=== PATIENT | male | born 1945 | race Caucasian/White ===

== ENCOUNTER 2025-01-01 09:29 | Emergency (ER) | payer MEDICARE, BC, SELFPAY ==
[2025-01-01 09:30] VITALS: BMI 28.8
[2025-01-01 09:40] VITALS: BP 129/75; PULSE 75; RESP 18; TEMP 37.1; O2SAT 94
--- NOTE | 2025-01-01 09:43 | XR_ITS ---
Examination: CT left hip, without contrast. CT pelvis without intravenous contrast 2-D sagittal reconstructions. 2-D coronal reconstructions. 3-D reconstructions. Date and time of exam:January 01, 2025 1009 hours INDICATIONS: Injury to the left hip 10 days ago with persistent left hip pain CTDI: vol (mGy):8.99 DLP: (mGycm):303 Technique: Multiple 1.25 mm axial sections of the pelvis left hip have been obtained. 2-D sagittal and coronal reconstructions have been obtained. 3-D reconstructions have been obtained. Low dose protocols were performed. One or more of the following dose reduction techniques were used; automated exposure control, adjustment of the mA and/or KV according to patient size, use of iterative reconstruction technique. Findings: Prominent osteopenia Iliac bones acetabular regions intact Anterior rami intact No right or left acute hip fracture Old healed left hip fracture Advanced degenerative disc disease L5-S1 with grade 1 spondylolisthesis IMPRESSION: No acute hip or pelvic fracture If hip pain persists, recommend follow-up AP pelvis in 1-2 days
--- NOTE | 2025-01-01 09:43 | EKG_ITS ---
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
--- NOTE | 2025-01-01 09:43 | XR_ITS ---
Examination: CT brain head without contrast. 2-D sagittal coronal reconstructions Date and time of exam:January 01, 2025 1005 hours INDICATIONS: Patient fell 10 days ago with injury to the head, head pain CTDI: vol (mGy):55.7 DLP: (mGycm):1156 Technique: Multiple CT axial sections of the brain have been obtained, 5 mm slice thickness. Contrast has not been administered. 2-D sagittal, coronal reconstructions have been obtained Low dose protocols were performed. One or more of the following dose reduction techniques were used; automated exposure control, adjustment of the mA and/or KV according to patient size, use of iterative reconstruction technique. Findings: No significant ventricular enlargement. Intra-axial or extra-axial hemorrhage density is not seen. No mass effect or midline shift Basal cisterns are not remarkable. Fourth ventricle is midline. Cranial vault intact. Impression: Negative for acute hemorrhage, mass effect or midline shift
--- NOTE | 2025-01-01 09:43 | XR_ITS ---
Examination: CT cervical spine without contrast 2-D sagittal reconstructions 2-D coronal reconstructions 3-D reconstructions. Exam date and time:January 01, 2025 1005 hours INDICATIONS: Patient fell 10 days ago with injury to the neck, neck pain CTDI:vol (mGy) 8.96 DLP: (mGycm) 182 Technique: Multiple 2 mm axial sections of the cervical spine have been obtained. The coronal and sagittal reconstructions have been obtained. 3-D reconstructions have been obtained. Low dose protocols were performed. One or more of the following dose reduction techniques were used; automated exposure control, adjustment of the mA and/or KV according to patient size, use of iterative reconstruction technique. Findings: Axial sections demonstrate intact base of the skull. C1 exhibit satisfactory relationship to the odontoid. No acute cervical vertebral body fracture seen. Alignment posterior spinous processes satisfactory. Impression: No acute cervical fracture.
--- NOTE | 2025-01-01 09:44 | EDRME_ITS ---
Rapid Medical Screening Exam RME Arrival date/time: 01/01/25 09:29 79-year-old male with Parkinson's disease presents emergency department today with who reports patient had a fall in the driveway on Wednesday reports left- sided hip pain and increased confusion Chief Complaint: Hip Injury/Pain Time Seen by Provider: 01/01/25 09:39 Vital signs: Vital Signs Temperature 98.7 F 01/01/25 09:40 Pulse Rate 75 01/01/25 09:40 Respiratory Rate 18 01/01/25 09:40 Blood Pressure 129/75 01/01/25 09:40 Pulse Oximetry (%) 94 L 01/01/25 09:40 Oxygen Delivery Method Room Air 01/01/25 09:40
[2025-01-01 10:54] LABS: Basophils % (Auto) 1 % (0-2.5); Eosinophils # (Auto) 0.1 Thou/mm3 (0.0-0.5); Eosinophils % (Auto) 1 % (0-10); Hemoglobin 13.9 g/dL (13.5-16.0); Immature Granulocytes % (Auto) 1 % (0-0); Immature Granulocytes Auto 0.03 Thou/mm3 (0.00-0.00); Lymphocytes % (Auto) 18 % (10-50); Mean Corpuscular HGB Conc 34.8 g/dl (31.0-37.0); Mean Corpuscular Volume 101 fL (80-100); Monocytes # (Auto) 0.7 Thou/mm3 (0.0-0.8); Monocytes % (Auto) 13 % (0-12); Neutrophils # (Auto) 3.8 Thou/mm3 (1.8-7.7); Neutrophils % (Auto) 67 % (37-80); Nucleated Red Blood Cell % 0 /100 WBC (0); Platelet Count 142 Thou/mm3 (140-440); RDW Standard Deviation 47.5 fL (35.1-43.9); Red Blood Count 3.97 Miln/mm3 (4.50-5.90); White Blood Count 5.7 Thou/mm3 (3.8-10.6)
[2025-01-01 11:21] LABS: Alanine Aminotransferase < 7 U/L (10-49); Albumin, Serum 4.6 gm/dL (3.4-4.8); Alkaline Phosphatase 98 U/L (46-116); Anion Gap 8 (7-16); Aspartate Amino Transferase 18 U/L (0-34); BUN/Creatinine Ratio 23 Ratio (12-20); Blood Urea Nitrogen 28 mg/dL (9-23); Calcium 9.9 mg/dL (8.3-10.6); Calcium (Corrected) 9.9 mg/dL (8.5-10.1); Carbon Dioxide 27.2 mMol/L (20.0-31.0); Chloride 104 mMol/L (98-107); Creatinine (Component) 1.2 mg/dL (0.6-1.3); Estimated Creatinine Clearance 52.4 mL/min (>60); Globulin 2.3 gm/dL (2.3-3.5); Glucose 101 mg/dL (74-106); Osmolality,Calculated 283 (275-295); Sodium 139 mMol/L (136-145); Total Protein 6.9 gm/dL (5.7-8.2); Troponin I < 0.020 ng/mL (0.0-0.045); eGFR > 60 See Note
--- NOTE | 2025-01-01 12:08 | PD.EDHIP ---
Lower Extremity Injury RME/HPI General Chief Complaint: Hip Injury/Pain Stated Complaint: LEFT HIP PAIN S/P FALL 10 DAYS AGO Time Seen by Provider: 01/01/25 09:39 Arrival date/time: 01/01/25 09:29 RME / HPI RME / HPI Narrative: 01/01/25 09:29 79-year-old male with Parkinson's disease presents emergency department today with who reports patient had a fall in the driveway on Wednesday reports left-sided hip pain and increased confusion DR. KILLIAN MAIN ED EVALUATION: 79 year old male presents to the Emergency Department with complaint of left hip pain onset 10 days ago. Patient fell 10 days ago and since has pain. Per , he was walking a mile without walker and after fall has been using a walker. Related Data Home Medications ?Medication ?Instructions ?Recorded ?Confirmed allopurinol 300 mg tablet 300 mg PO QDAY 05/19/18 05/12/24 amlodipine 10 mg tablet 10 mg PO QDAY 05/19/18 05/15/24 tamsulosin 0.4 mg capsule 0.4 mg PO QHSPRN 05/19/18 05/12/24 aspirin 25 mg-dipyridamole 200 mg 1 cap PO BID 05/12/24 05/12/24 capsule,ext.release 12 hr multiphase famotidine 20 mg tablet 20 mg PO QDAY 05/12/24 05/12/24 Allergies Allergy/AdvReac Type Severity Reaction Status Date / Time No Known Allergies Allergy Verified 01/01/25 09:32 Review of Systems Review of Systems Systems Reviewed: All systems reviewed, normal except as documented Narrative Review of Systems: GEN: No fever, no chills, no weight loss EYES: No discharge, no visual changes, no pain HEENT: No ear pain, no congestion, no sore throat PULM: No shortness of breath, no cough, no congestion CV: No chest pain, no dyspnea on exertion, no palpitations GI: No nausea, no vomiting, no diarrhea, no pain, no constipation : No frequency, no urgency and no dysuria MUSC/SKEL: + left hip pain, no back pain SKIN: No rash PSYCH: No hallucinations, no depression HEME/LYMPH: No easy bleeding or bruising tendencies NEURO: No weakness, no headache Past Medical History Past Medical History NEUROLOGIC: Positive Neurological Disorders and Transient Ischemic Attacks (TIA) CARDIAC: Positive Cardiac Disorders and Hypertension GASTROINTESTINAL: Positive Gastrointestinal Disorders (CONSTIPATION) and Obesity GENITOURINARY: Positive Genitourinary Disorders and Benign Prostatic Hyperplasia MUSCULOSKELETAL: Positive Musculoskeletal Disorders and Gout Family History FAMILY HISTORY: Positive Family Cardiac Disorders Social History SMOKING STATUS: Never smoker SUBSTANCE USE: does not use ALCOHOL: Never Travel History EBOLA RISK: No ED Exam Narrative Physical exam: GENERAL APPEARANCE: Well hydrated, well nourished, in no acute distress. VITALS: All vitals were reviewed and the pulse ox is 94% on room air which is normal according to my interpretation. HEENT: Normocephalic, atramatic, EOMI, EACs are patent. There is no bulge or retraction. Throat without erythema or exudate. Moist oromucosa. No jaundice NECK: Supple, no JVD or bruits. CARDIOVASCULAR: Heart regular without S3-S4 or murmur. No rubs or gallops. LUNGS/CHEST: Clear to auscultation bilaterally. No rales, rhonchi, or wheezing. Normal inspection. ABDOMEN: Soft, nontender, with normal bowel sounds. No pulsatile masses. No rebound, rigidity, or guarding. No incarcerated hernia. Normal inspection and palpation. EXTREMITIES: No edema, clubbing, or cyanosis. Intact CSM. FROM of left hip including FROM of left distal foot. SKIN: Warm and dry without rashes. Noted an old left scar on the left hip area. MUSCULOSKELETAL: No gross deformity, full ROM all extremities. Normal inspection. NEURO: Alert and oriented x3. Cranial nerves II through XII grossly intact. There are no other motor or sensory deficits noted. PSYCHIATRIC: Normal mood and affect. No psychosis. Course Quality Measures none Orders Category Date Time Status EKG (ED ONLY) *Do not use* NOW Care 01/01/25 09:[address] cervical spine wo con Stat Exams 01/01/25 09:[address] head/brain wo con Stat Exams 01/01/25 09:[address] hip LT wo con Stat Exams 01/01/25 09:43 Completed EKG (ED Only) Stat Exams 01/01/25 09:43 Draft XR femur LT 2V Stat Exams 01/01/25 12:18 Taken CBC Stat Lab 01/01/25 10:26 Completed Comprehensive Metabolic Panel Stat Lab 01/01/25 10:26 Completed Troponin I Stat Lab 01/01/25 10:26 Completed UA, C/S IF [Urinalysis, C/S if Indicated] Stat Lab 01/01/25 12:42 Completed Vital Signs Vital signs: Vital Signs Temperature 98.7 F 01/01/25 09:40 Pulse Rate 75 01/01/25 09:40 Respiratory Rate 18 01/01/25 09:40 Blood Pressure 129/75 01/01/25 09:40 Pulse Oximetry (%) 94 L 01/01/25 09:40 Oxygen Delivery Method Room Air 01/01/25 09:40 Extremity Injury, Lower MDM Narrative MDM Narrative:: I, Camille Herrera am scribing for and in the presence of Dr. Killian. CBC is negative. CMP negative. Troponin negative. Twelve-lead EKG that was done at 9:50 AM and interpreted by me: Normal sinus rhythm. Heart rate of 70. No ST elevation or depression. No PVC. No STEMI. Regular rate and rhythm. CT head was reviewed by me as follow: No bleed. No mass. No shifting. No swelling. Normal ventricle. Normal skull. CT cervical spine was reviewed by me as follow: No fracture. No dislocation. Normal alignment. No adjacent soft tissue swelling. Positive for arthritis. CT of the left hip was reviewed by me as follow: No fracture. Status post ORIF with metals. No dislocation. Acetabular liner and the rest of the pelvic bones are negative. In fact I spoke to and discussed with Dr. Donald Rosales radiologist. He confirmed with me that it is negative. Both right and left hip. X-ray of the left hip was done and interpreted by me as follow. No fracture. Status post ORIF with intact hardware. No dislocation. Visible part of the left acetabula and left knee is unremarkable. Patient data External records reviewed:: [facility] previous records (Reviewed colonoscopy note by Dr. Renee dated 05/19/24.) Clinical information provided by:: patient and spouse Social determinants that could affect healthcare access:: none Patient has the following chronic illnesses:: Hypertension and GERD How is presenting disease/condition affected by chronic disease/condition?: uneffected by Evaluation data The following diagnostics were reviewed and interpreted by me:: lab results, radiology exam(s) and EKG tracing(s) Lab and/or radiology exams considered but not ordered:: none Interpretation Summary: See above under MDM narrative. RADIOLOGY Procedure(s): CT hip LT wo con Accession Number(s): [id number] cc: Baylee (NASH),Schuyler CAO; Donald Tran MD~ Examination: CT left hip, without contrast. CT pelvis without intravenous contrast 2-D sagittal reconstructions. 2-D coronal reconstructions. 3-D reconstructions. Date and time of exam:January 01, 2025 1009 hours INDICATIONS: Injury to the left hip 10 days ago with persistent left hip pain CTDI: vol (mGy):8.99 DLP: (mGycm):303 Technique: Multiple 1.25 mm axial sections of the pelvis left hip have been obtained. 2-D sagittal and coronal reconstructions have been obtained. 3-D reconstructions have been obtained. Low dose protocols were performed. One or more of the following dose reduction techniques were used; automated exposure control, adjustment of the mA and/or KV according to patient size, use of iterative reconstruction technique. Findings: Prominent osteopenia Iliac bones acetabular regions intact Anterior rami intact No right or left acute hip fracture Old healed left hip fracture Advanced degenerative disc disease L5-S1 with grade 1 spondylolisthesis IMPRESSION: No acute hip or pelvic fracture If hip pain persists, recommend follow-up AP pelvis in 1-2 days Dictated By: Donald Tran MD Procedure(s): CT head/brain wo con Accession Number(s): [id number] cc: Baylee KEENAN),Schuyler CAO; Donald Tran MD~ Examination: CT brain head without contrast. 2-D sagittal coronal reconstructions Date and time of exam:January 01, 2025 1005 hours INDICATIONS: Patient fell 10 days ago with injury to the head, head pain CTDI: vol (mGy):55.7 DLP: (mGycm):1156 Technique: Multiple CT axial sections of the brain have been obtained, 5 mm slice thickness. Contrast has not been administered. 2-D sagittal, coronal reconstructions have been obtained Low dose protocols were performed. One or more of the following dose reduction techniques were used; automated exposure control, adjustment of the mA and/or KV according to patient size, use of iterative reconstruction technique. Findings: No significant ventricular enlargement. Intra-axial or extra-axial hemorrhage density is not seen. No mass effect or midline shift Basal cisterns are not remarkable. Fourth ventricle is midline. Cranial vault intact. Impression: Negative for acute hemorrhage, mass effect or midline shift Dictated By: Donald Tran MD Procedure(s): CT cervical spine wo con Accession Number(s): [id number] cc: Baylee KEENAN),Schuyler CAO; Donald Tran MD~ Examination: CT cervical spine without contrast 2-D sagittal reconstructions 2-D coronal reconstructions 3-D reconstructions. Exam date and time:January 01, 2025 1005 hours INDICATIONS: Patient fell 10 days ago with injury to the neck, neck pain CTDI:vol (mGy) 8.96 DLP: (mGycm) 182 Technique: Multiple 2 mm axial sections of the cervical spine have been obtained. The coronal and sagittal reconstructions have been obtained. 3-D reconstructions have been obtained. Low dose protocols were performed. One or more of the following dose reduction techniques were used; automated exposure control, adjustment of the mA and/or KV according to patient size, use of iterative reconstruction technique. Findings: Axial sections demonstrate intact base of the skull. C1 exhibit satisfactory relationship to the odontoid. No acute cervical vertebral body fracture seen. Alignment posterior spinous processes satisfactory. Impression: No acute cervical fracture. Dictated By: Donald rTan MD Medications / Prescriptions Medications or Prescriptions considered but not ordered:: none Medication administrations:: see above if any Consultations Consultation(s) initiated? (list below): No Diagnosis Most likely diagnosis given after review of the tests above:: Hip sprain. Hip strain. Admission Indicated Admission indicated?: not indicated Admission Request Was there a request for admission?: No Disposition Plan Disposition Plan: Discharge Discharge Attestation Discharge Attestation: The patient and all family members were given an opportunity to ask questions and understood the discharge instructions. Discharge instructions specifically effects, indications for sooner follow up or return to the emergency department, and the expected course of current diagnosis. Patient condition: Stable Discharge Plan Plan Patient Disposition: HOME (Self Care) Disposition Comment: Stable for DC home Prescriptions/Referrals Prescriptions/Med Rec: No Action tamsulosin 0.4 mg Capsule,Extended Release 24hr 0.4 mg PO QHSPRN amlodipine 10 mg Tablet 10 mg PO QDAY allopurinol 300 mg Tablet 300 mg PO QDAY aspirin-dipyridamole 25-200 mg capsule, ER multiphase 12 hr 1 cap PO BID Patient Comments: TAKE 1 CAPSULE BY MOUTH TWICE A DAY famotidine 20 mg tablet 20 mg PO QDAY Patient Comments: TAKE 1 TABLET BY MOUTH EVERYDAY AT BEDTIME Referrals: Cristino Henning MD [Primary Care Provider] - In 1 week Problem List Clinical Impression: Sprain of left hip Patient/Caregiver Discharge Instructions Education Materials: ED Hip Strain Additional Instructions: X-rays and CT is showing no evidence of fracture or dislocation at this time. Rest your painful joint. Follow-up with your doctor in 3 days. Return to emergency department if condition worsens or if new symptoms develop. Consider repeat x-ray if that happens. In the meantime you can take some Motrin for pain Print Language: Chadian Stand Alone Forms: [employer] Award Info., Patient Portal Info Letter
--- NOTE | 2025-01-01 12:18 | XR_ITS ---
Examination: Left femur 2 views Technique one AP lateral left femur 2 views Exam date and time: January 01, 2025 1221 hours INDICATIONS: Patient fell 10 days ago with injury to the leg, left femur pain FINDINGS: Old healed fracture left hip with satisfactory position orthopedic hardware Moderate left hip osteoarthritis No acute femur fracture IMPRESSION: No acute femur fracture
[2025-01-01 12:49] LABS: Collection Type, Urine Clean Catch; Squamous Epithelial Cell,Urine 0 /hpf (0-5)
[2025-01-01 13:05] LABS: Bilirubin,Urine Negative (Negative); Blood,Urine Negative (Negative); Clarity,Urine Clear (Clear/Hazy); Color,Urine Yellow (Lt Yel-Yel); Culture Indicated,Urine Not Indicated; Glucose, Urine Negative (Negative); Ketones,Urine Negative (Negative); Leukocyte Esterase,Urine Negative (Negative); Nitrite,Urine Negative (Negative); Protein,Urine Trace (Neg - Trace); RBC,Urine 1 /hpf (0-3); Specific Gravity,Urine 1.028 (1.001-1.035); Urobilinogen,Urine Negative mg/dL (0.0-1.0); WBC,Urine < 1 /hpf (0-5)
[2025-01-01 13:20] VITALS: BP 174/81; PULSE 70; RESP 21; O2SAT 92
[2025-01-01] MEDS: IBUPROFEN TAB 600 MG TABLET PO (13:58)
== END 2025-01-01 14:02 | disposition home or self-care (01) ==
PROVIDERS: Nurse Practitioner Primary Care; Emergency Provider Emergency Medicine; PCP Family Medicine
DX: S73.102A Unspecified sprain of left hip, initial encounter (principal); R41.0 Disorientation, unspecified; M54.2 Cervicalgia; I10 Essential (primary) hypertension; G20.A1 Parkinson's disease without dyskinesia, without mention of fluctuations; Z86.73 Personal history of transient ischemic attack (TIA), and cerebral infarction without residual deficits; W19.XXXA Unspecified fall, initial encounter; Y92.89 Other specified places as the place of occurrence of the external cause
CPT/HCPCS: 36415; 70450; 72125; 73552; 73700; 80053; 81001; 84484; 85025; 93005; 99284; A9270

== ENCOUNTER 2025-01-02 08:18 | Inpatient (IN) | payer MEDICARE, BC, SELFPAY ==
[2025-01-02] VITALS (12 sets, daily range): BP systolic 131–171; BP diastolic 73–133; PULSE 75–90; RESP 16–22; TEMP 36.7–38.7; O2SAT 91–97; BMI 28.8; BMI 28.5
--- NOTE | 2025-01-02 08:49 | PD.EDFALL ---
ED Fall Injury RME/HPI General Chief Complaint: Fall Stated Complaint: fall Time Seen by Provider: 01/02/25 08:31 Arrival date/time: 01/02/25 08:18 RME / HPI RME / HPI Narrative: DR. HAIRSTON MAIN ED EVALUATION: 79 year old male presents to the Emergency Department [facility] with complaint of falling backwards and landed on buttocks. No loss of consciousness. Patient takes a daily ASA. PMHx: Hypertension, GERD, dementia and Parkinson's disease Social Hx: No tobacco, alcohol, or substance use. Related Data Home Medications ?Medication ?Instructions ?Recorded ?Confirmed allopurinol 300 mg tablet 300 mg PO QDAY 05/19/18 05/12/24 amlodipine 10 mg tablet 10 mg PO QDAY 05/19/18 05/15/24 tamsulosin 0.4 mg capsule 0.4 mg PO QHSPRN 05/19/18 05/12/24 aspirin 25 mg-dipyridamole 200 mg 1 cap PO BID 05/12/24 05/12/24 capsule,ext.release 12 hr multiphase famotidine 20 mg tablet 20 mg PO QDAY 05/12/24 05/12/24 Allergies Allergy/AdvReac Type Severity Reaction Status Date / Time No Known Allergies Allergy Verified 01/01/25 09:32 Review of Systems Review of Systems Systems Reviewed: All systems reviewed, normal except as documented Narrative Review of Systems: GEN: No fever, no chills, no weight loss EYES: No discharge, no visual changes, no pain HEENT: No ear pain, no congestion, no sore throat PULM: No shortness of breath, no cough, no congestion CV: No chest pain, no dyspnea on exertion, no palpitations GI: No nausea, no vomiting, no diarrhea, no pain, no constipation : No frequency, no urgency and no dysuria MUSC/SKEL: + buttocks pain (fall see HPI) SKIN: No rash PSYCH: No hallucinations, no depression HEME/LYMPH: No easy bleeding or bruising tendencies NEURO: No weakness, no headache Past Medical History Past Medical History NEUROLOGIC: Positive Neurological Disorders, Transient Ischemic Attacks (TIA), Dementia and Parkinson's Disease; Negative Seizures CARDIAC: Positive Cardiac Disorders and Hypertension; Negative Congestive Heart Failure RESPIRATORY: Negative Chronic Obstructive Pulmonary Disease (COPD) GASTROINTESTINAL: Positive Gastrointestinal Disorders and Obesity GENITOURINARY: Positive Genitourinary Disorders and Benign Prostatic Hyperplasia; Negative Renal Disease MUSCULOSKELETAL: Positive Musculoskeletal Disorders and Gout ENT: Positive Cataracts ENDOCRINE: Negative Endocrine Disorders, Diabetes Mellitus Type 1 or Diabetes Mellitus Type 2 HEMATOLOGIC: Negative Blood Disorders OTHER HISTORY: Negative Autoimmune Disease, Falls, Blood Transfusions or Anesthesia Reactions Family History FAMILY HISTORY: Positive Family Cardiac Disorders Social History SMOKING STATUS: Never smoker SUBSTANCE USE: does not use ALCOHOL: Never ED Exam Narrative Physical exam: GENERAL APPEARANCE: alert and oriented x 4, well-developed, well-nourished VITALS: All vitals were reviewed and the pulse ox is 91% on room air, which is normal according to my interpretation. HEENT: Normocephalic, atraumatic; pupils equal, round, reactive to light; EOMI; mucous membranes pink, moist; oropharynx clear NECK: Supple LUNGS: CTABL; no wheezes, no rales, no rhonchi HEART: Regular rate, regular rhythm; normal S1, S2; no murmurs ABDOMEN: non distended; normal BS; soft, no tenderness, no guarding, no rebound; no masses, no organomegaly, no hernia BACK: no CVA tenderness EXTREMITIES: atraumatic; no edema NEUROLOGIC: awake; alert and oriented x4; cranial nerves II-XII grossly intact; no focal sensory or motor deficits PSYCHIATRIC: appropriate mood and affect SKIN: warm, dry, normal color; no rashes Course Quality Measures none Orders Category Date Time Status Maintenance Man NOW Care 01/02/25 10:59 Active Consult Talent Acquisition Lead NOW Care 01/02/25 10:44 Completed EKG (ED ONLY) *Do not use* NOW Care 01/02/25 10:59 Completed Referral Physical Therapy Stat Cons 01/02/25 10:[address] head/brain wo con Stat Exams 01/02/25 13:21 Completed EKG (ED Only) Stat Exams 01/02/25 10:59 Draft XR chest 1V portable Stat Exams 01/02/25 10:59 Completed XR hip LT w pelvis 2-3V Stat Exams 01/02/25 10:58 Completed B-Type Natriuretic Peptide Stat Lab 01/02/25 11:22 Completed CBC Stat Lab 01/02/25 11:22 Completed Comprehensive Metabolic Panel Stat Lab 01/02/25 11:22 Completed Lactate (Lactic Acid) Stat Lab 01/02/25 11:22 Completed Magnesium Stat Lab 01/02/25 11:22 Completed Partial Thromboplastin Time Stat Lab 01/02/25 11:22 Completed Prothrombin Time with INR Stat Lab 01/02/25 11:22 Completed Troponin I Stat Lab 01/02/25 11:22 Completed UA, C/S IF [Urinalysis, C/S if Indicated] Stat Lab 01/02/25 13:32 Completed HYDROcodone*/APAP 5/325 [[place] 5/325] Med 01/02/25 08:48 Discontinued 1 tab PO X1 ONE Vital Signs Vital signs: Vital Signs Temperature 98.5 F 01/02/25 08:39 Pulse Rate 75 01/02/25 08:39 Respiratory Rate 17 01/02/25 08:39 Blood Pressure 155/86 H 01/02/25 08:39 Pulse Oximetry (%) 93 L 01/02/25 08:39 Oxygen Delivery Method Room Air 01/02/25 08:39 Fall MDM Narrative MDM Narrative:: ICamille am scribing for and in the presence of Dr. Hairston. Patient data External records reviewed:: [facility] previous records (Reviewed last ED visit dated 01/01/25, discharged with the following: Sprain of left hip) and EMS form Clinical information provided by:: patient and EMS Social determinants that could affect healthcare access:: none Patient has the following chronic illnesses:: Hypertension, GERD, dementia and Parkinson's disease How is presenting disease/condition affected by chronic disease/condition?: exacerbated by Evaluation data The following diagnostics were reviewed and interpreted by me:: lab results, radiology exam(s) and EKG tracing(s) (EKG#1: EKG at 0950 hours. Interpreted by me: sinus rhythm, rate 70, no acute ischemic changes) Lab and/or radiology exams considered but not ordered:: none Interpretation Summary: Procedure(s): CT head/brain wo con Accession Number(s): [id number] cc: Donald Tran MD; Amelie Hairston MD; Cristino Henning MD~ Examination: CT brain head without contrast. 2-D sagittal coronal reconstructions Date and time of exam:January 02, 2025 1353 hours Comparison January 01, 2025 INDICATIONS: Patient fell today with injury to the head, altered mental status head pain CTDI: vol (mGy):57.2 DLP: (mGycm):1134 Technique: Multiple CT axial sections of the brain have been obtained, 5 mm slice thickness. Contrast has not been administered. 2-D sagittal, coronal reconstructions have been obtained Low dose protocols were performed. One or more of the following dose reduction techniques were used; automated exposure control, adjustment of the mA and/or KV according to patient size, use of iterative reconstruction technique. Findings: No significant ventricular enlargement. Intra-axial or extra-axial hemorrhage density is not seen. No mass effect or midline shift Basal cisterns are not remarkable. Fourth ventricle is midline. Cranial vault intact. Impression: Negative for acute hemorrhage, mass effect or midline shift Dictated By: Donald Tran MD Procedure(s): XR chest 1V portable Accession Number(s): [id number] cc: Donald Tran MD; Amelie Hairston MD; Cristino Henning MD~ Examination: AP chest single view Technique one AP portable upright chest single view Exam date and time: January 02, 2025 1104 hours INDICATIONS: Chest pain today. FINDINGS: No significant cardiac enlargement Mild elevation right hemidiaphragm. No pneumonia or pulmonary edema Prominent osteopenia IMPRESSION: No pneumonia or pulmonary edema Dictated By: Donald Tran MD Procedure(s): XR hip LT w pelvis 2-3V Accession Number(s): [id number] cc: Donald Tran MD; Amelie Hairston MD; Cristino Henning MD~ Examination:Left hip AP, lateral, AP pelvis 3 views Technique: Hip AP lateral, AP pelvis, 3 views Exam date and time:January 02, 2025 at 1059 hours Comparison January 01, 2025. INDICATIONS: Patient fell today with injury to the left hip, left hip pain. FINDINGS: Old healed left hip fracture No acute left hip fracture Right hip bones of the pelvis intact IMPRESSION: No acute left hip fracture Suggest short-term follow-up AP pelvis or CT scan left hip as clinically warranted Dictated By: Donald Tran MD Medications / Prescriptions Medications or Prescriptions considered but not ordered:: none Medication administrations:: Medication Administration History Discontinued Medications Hydrocodone Bitart/Acetaminophen (Hydrocodone/[place] 5/325 Tablet) 1 tab PO X1 ONE Stop: 01/02/25 08:49 Last Admin: 01/02/25 09:11 Dose: 1 tab Documented By: DO see above Consultations Consultation(s) initiated? (list below): Yes Consultation #1 (Physician, Specialty, Details): Discussed test HPI, PMHx, lab, radiology results and/or management with hospitalist Dr. Stallworth. Will admit for further evaluation and management. Accepts patient for admission. Time: 17:40 Diagnosis Fall Differential Diagnosis: other (fall, hip fracture, hip contusion) Most likely diagnosis given after review of the tests above:: Fall Admission Indicated Admission indicated?: indicated Admission Request Was there a request for admission?: Yes Admission Attestation Admission request attestation: Discussed case with [] from Hospitalist service regarding admission. Discussed patients ED course, exam findings, labs, and radiology results. The Hospitalist [agrees,declines] to accept the patient for admission. Disposition Plan Disposition Plan: Admit Discharge Plan Plan Patient Disposition: HOME (Self Care) Prescriptions/Referrals Prescriptions/Med Rec: No Action tamsulosin 0.4 mg Capsule,Extended Release 24hr 0.4 mg PO QHSPRN amlodipine 10 mg Tablet 10 mg PO QDAY allopurinol 300 mg Tablet 300 mg PO QDAY aspirin-dipyridamole 25-200 mg capsule, ER multiphase 12 hr 1 cap PO BID Patient Comments: TAKE 1 CAPSULE BY MOUTH TWICE A DAY famotidine 20 mg tablet 20 mg PO QDAY Patient Comments: TAKE 1 TABLET BY MOUTH EVERYDAY AT BEDTIME Referrals: Cristino Henning MD [Primary Care Provider] - In 1 week Problem List Clinical Impression: Fall Patient/Caregiver Discharge Instructions Education Materials: Preventing Falls Making ..., Preventing Falls Make Your ... Print Language: Citizen Of [place] Stand Alone Forms: [employer] Award Info., Patient Portal Info Letter
[2025-01-02] MEDS: HYDROcodone/APAP 5/325 TABLET 1 TAB PO (09:11)
--- NOTE | 2025-01-02 10:40 | PC.NURSE ---
FAMILY MEMBER AT BEDSIDE STATING CONCERNS ABOUT PT GOING HOME. FAMILY STATED THAT PT IS UNABLE TO AMBULATE AND THIS IS NOT NORMAL FOR HIM. SHE WOULD LIKE TO SEE IF PT CAN BE SENT TO A REHAB FACILITY TILL HE IS BETTER. WILL INFORM DR HILLIARD AT THIS TIME
--- NOTE | 2025-01-02 10:50 | PC.NURSE ---
DR HILLIARD IN ROOM TO SPEAK WITH FAMILY AT THIS TIME.
--- NOTE | 2025-01-02 10:58 | XR_ITS ---
Examination:Left hip AP, lateral, AP pelvis 3 views Technique: Hip AP lateral, AP pelvis, 3 views Exam date and time:January 02, 2025 at 1059 hours Comparison January 01, 2025. INDICATIONS: Patient fell today with injury to the left hip, left hip pain. FINDINGS: Old healed left hip fracture No acute left hip fracture Right hip bones of the pelvis intact IMPRESSION: No acute left hip fracture Suggest short-term follow-up AP pelvis or CT scan left hip as clinically warranted
--- NOTE | 2025-01-02 10:59 | EKG_ITS ---
[facility] Test Date: 2025-01-02 Pat Name: RADHA PORTER Department: Room: - Gender: Male Link Cutter: : 1945 Requested By: Amelie Solorzano Order Number: [id number] Reading MD: Amelie Solorzano Measurements Intervals [place] Rate: 77 P: 54 NV: 169 QRS: 34 QRSD: 90 T: 53 QT: 326 QTc: 369 Interpretive Statements SINUS RHYTHM WITH SINUS ARRHYTHMIA NONSPECIFIC ST & T-WAVE ABNORMALITY Compared to ECG 01/01/2025 09:50:55 No significant changes /store/S0/[id number]/[id number].pdf
--- NOTE | 2025-01-02 10:59 | XR_ITS ---
Examination: AP chest single view Technique one AP portable upright chest single view Exam date and time: January 02, 2025 1104 hours INDICATIONS: Chest pain today. FINDINGS: No significant cardiac enlargement Mild elevation right hemidiaphragm. No pneumonia or pulmonary edema Prominent osteopenia IMPRESSION: No pneumonia or pulmonary edema
[2025-01-02 11:41] LABS: Lactate (Lactic Acid) 0.9 mMol/L (0.4-2.0)
[2025-01-02 11:44] LABS: Basophils % (Auto) 0 % (0-2.5); Eosinophils % (Auto) 1 % (0-10); Hematocrit 39.5 % (41.0-53.0); Hemoglobin 14.3 g/dL (13.5-16.0); Immature Granulocytes % (Auto) 0 % (0-0); Immature Granulocytes Auto 0.03 Thou/mm3 (0.00-0.00); Lymphocytes % (Auto) 15 % (10-50); Mean Corpuscular HGB Conc 36.2 g/dl (31.0-37.0); Mean Corpuscular Hemoglobin 35.8 pg (25.0-35.0); Mean Corpuscular Volume 99 fL (80-100); Monocytes % (Auto) 14 % (0-12); Neutrophils # (Auto) 4.8 Thou/mm3 (1.8-7.7); Neutrophils % (Auto) 70 % (37-80); Nucleated Red Blood Cell % 0 /100 WBC (0); Platelet Count 142 Thou/mm3 (140-440); RDW Standard Deviation 45.2 fL (35.1-43.9); White Blood Count 6.8 Thou/mm3 (3.8-10.6)
--- NOTE | 2025-01-02 11:44 | PC.SS ---
Addendum entered by Stefany Petersen 01/02/25 14:21: PT evalma completed. Dr. Hairston to review imaging to determine if patient will be admitted. [employer] informed patient's spouse at bedside of pending decision and reminded her of 3MN stay due to Medicare. Patient's Gloria requesting SNF in [place] at [facility], 2. [facility], 3rd. [facility]. Addendum entered by Stefany Petersen 01/02/25 12:07: [employer] informed by PENELOPE Salcido patient?s family is requesting SNF Placement. [employer] met with patient and his spouse Gloria Kelly at bedside. Patient?s spouse stated patient fell approximately 1 week ago and since then his strength has decreased. Patient is requiring assistance with ADL completion. Per patient?s spouse,? since the fall patient has difficulty with ambulation. She reports patient ambulates with FWW. Patient?s reports she is unable to assist patient with ADLs and transfers due to having her own medical issues.? [employer] explained to patient and his spouse potential insurance barrier with Medicare. A 3-midnight stay is required for SNF placement. Patient would need to meet medical necessity and criteria to be admitted. PCP-[facility] Lousie Retana. PCP: Dr. Cristino Henning. PT Eval pending. Original Note: [employer] received call from PT Stefany, informed sports writer hip xray is pending. Once completed and read, PT to evaluate patient.
[2025-01-02 11:58] LABS: INR 1.1 (0.9-1.3); Partial Thromboplastin Time 31.1 Seconds (22.0-36.0); Prothrombin Time 11.5 Seconds (9.0-12.2)
[2025-01-02 12:18] LABS: B-Type Natriuretic Peptide 56 pg/mL (0-100)
[2025-01-02 12:21] LABS: Alanine Aminotransferase 15 U/L (10-49); Albumin, Serum 4.4 gm/dL (3.4-4.8); Albumin/Globulin Ratio 1.8 (1.2-2.2); Alkaline Phosphatase 104 U/L (46-116); Anion Gap 9 (7-16); Aspartate Amino Transferase 29 U/L (0-34); BUN/Creatinine Ratio 17 Ratio (12-20); Blood Urea Nitrogen 20 mg/dL (9-23); Carbon Dioxide 24.9 mMol/L (20.0-31.0); Chloride 104 mMol/L (98-107); Creatinine (Component) 1.2 mg/dL (0.6-1.3); Estimated Creatinine Clearance 52.4 mL/min (>60); Globulin 2.5 gm/dL (2.3-3.5); Glucose 105 mg/dL (74-106); Magnesium 1.8 mg/dL (1.6-2.6); Osmolality,Calculated 278 (275-295); Potassium 3.9 mMol/L (3.4-5.1); Sodium 138 mMol/L (136-145); Total Protein 6.9 gm/dL (5.7-8.2); Troponin I < 0.020 ng/mL (0.0-0.045); eGFR > 60 See Note
--- NOTE | 2025-01-02 13:21 | XR_ITS ---
Examination: CT brain head without contrast. 2-D sagittal coronal reconstructions Date and time of exam:January 02, 2025 1353 hours Comparison January 01, 2025 INDICATIONS: Patient fell today with injury to the head, altered mental status head pain CTDI: vol (mGy):57.2 DLP: (mGycm):1134 Technique: Multiple CT axial sections of the brain have been obtained, 5 mm slice thickness. Contrast has not been administered. 2-D sagittal, coronal reconstructions have been obtained Low dose protocols were performed. One or more of the following dose reduction techniques were used; automated exposure control, adjustment of the mA and/or KV according to patient size, use of iterative reconstruction technique. Findings: No significant ventricular enlargement. Intra-axial or extra-axial hemorrhage density is not seen. No mass effect or midline shift Basal cisterns are not remarkable. Fourth ventricle is midline. Cranial vault intact. Impression: Negative for acute hemorrhage, mass effect or midline shift
[2025-01-02 13:39] LABS: Collection Type, Urine Clean Catch; Squamous Epithelial Cell,Urine 0 /hpf (0-5)
[2025-01-02 13:48] LABS: Bilirubin,Urine Negative (Negative); Blood,Urine Negative (Negative); Clarity,Urine Clear (Clear/Hazy); Color,Urine Lt-Yellow (Lt Yel-Yel); Culture Indicated,Urine Not Indicated; Glucose, Urine Negative (Negative); Ketones,Urine Negative (Negative); Leukocyte Esterase,Urine Negative (Negative); Nitrite,Urine Negative (Negative); PH,Urine 6.5 (5.0-7.0); Protein,Urine Trace (Neg - Trace); RBC,Urine 1 /hpf (0-3); Specific Gravity,Urine 1.016 (1.001-1.035); Urobilinogen,Urine Negative mg/dL (0.0-1.0); WBC,Urine 1 /hpf (0-5)
--- NOTE | 2025-01-02 14:09 | PC.NURSE ---
Patient in room on [facility] in no signs of acute distress at this time. Patient able to move all 4 extremities. Patient's at bedside.
--- NOTE | 2025-01-02 19:14 | PC.NURSE ---
Admitting doctors came to see patient and aware of current status. Plan to admit. Patient's and daughter aware. Patient in [facility] currently restless. Rectal temp was taken and temp is elevated. Night RN made aware during report. No admitting orders in at this time.
--- NOTE | 2025-01-02 19:20 | W.PC.EDHO ---
Pain Pain Intensity 0 Pain Intensity 8 Pain Scale Used Numeric (1 - 10) Pain Scale Used Numeric (1 - 10) Oxygen Administration Pulse Oximetry (%) 91 Pulse Oximetry (%) 94 Pulse Oximetry (%) 93
--- NOTE | 2025-01-02 19:20 | PC.NURSE ---
Called and spoke with Dr Hernandez. Informed that patient had a fever spike. Per David will come see patient and talk to ED doc.
--- NOTE | 2025-01-02 20:16 | PD.RESHP ---
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 Patient was altered at the time of the encounter, likely secondary to NORCO. History was collected from daughter in law at bedside, and over the phone. Evidently, this morning he missed the chair while trying to sit down in the living room and landed on his buttocks. There were no reported signs of head trauma or loss of consciousness. Similar symptoms last week while he was moving a tire around the house for which he stumbled about an object, and fell without hitting his head. He has Parkinson's for which she take medications. At baseline, he is independent, walks 1 mi daily, normal mentation, some forgetfulness but no dementia. No reported history of fever, chills, sweats, headaches, seizures, AMS, LOC, chest pain, SOB, GI or urinary symptoms. ED COURSE: Tmax 101.7, HR 75, BP 155/86, RR 17, satting 93% on 2 L NC. CBC without leukocytosis or hemoglobinopathy. Normal coag studies. Chemistry significant for bilirubin of 2.0, otherwise relatively normal including Trope/BNP. UA negative for UTI. EKG sinus rhythm without acute ST changes. Head CT negative for acute pathology. CXR negative for pneumonia or pulmonary edema. X-ray hip/pelvis/femur were negative for acute fractures. PMHx: CVA, Parkinson's, HTN, BPH, GERD PSHx: Multiple orthopedic interventions including left hip, right hand, right knee, left knee MEDS: ASPIRIN-DIPYRIDAMOLE 25-200 mg BID, AMLODIPINE 10 mg daily, OMEPRAZOLE 20 mg daily, FAMOTIDINE 20 mg daily, ALLOPURINOL 300 mg daily, TAMSULOSIN 0.4 mg twice HS, SOLIFENACIN 5 mg HS, DONEPEZIL 10 mg HS, CARBIDOPA LEVODOPA 250 TID. ALLERGIES: NKA. FHx: Both parents of natural causes. No relevant family history.1984 SH: Occasional alcohol use, no tobacco or drug use. Exam Vital Signs Temp Pulse Resp BP Pulse Ox O2 Del Method 101.7 F H 90 20 171/88 H 95 Room Air 01/02/25 19:09 01/02/25 19:33 01/02/25 19:33 01/02/25 19:33 01/02/25 19:33 01/02/25 19:33 Narrative Exam GENERAL Normal appearing elderly male, no apparent distress. Generalized twitching in all extremities. Alert but disoriented, follows commands. HEENT NCAT.?KARINA. Oral mucosa is moist. Patent Nares NECK Supple, nontender, no thyromegaly, no meningismus, no JVD, no step offs CHEST RRR, no m/g/r CTAB, no w/r/r. Symmetrical chest rise. No intercostal subcostal retraction Atraumatic, nontender, no crepitus, symmetrical expansion. ABDOMEN Soft, flat, nontender. No guarding/rebound tenderness/masses. Bowel sounds presents EXTREMITIES Nontender, no cyanosis, no edema No edema/cyanosis.? SKIN Warm and dry, no jaundice/rashes. NEUROMUSCULAR Limited exam due to altered mentation No lumbar or midline, no CVA, no paraspinal muscle spasm or tenderness. Moves all 4 extremities well, with full ROM and good CSM. No focal neurologic deficits. Results: Labs 01/02/25 11:22 01/02/25 11:22 Labs: Short CBC 01/02/25 Range/Units 11:22 WBC 6.8 (3.8-10.6) Thou/mm3 Hgb 14.3 (13.5-16.0) g/dL Hct 39.5 L (41.0-53.0) % Plt Count 142 (140-440) Thou/mm3 BMP 01/02/25 11:22 Sodium 138 Potassium 3.9 Chloride 104 Carbon Dioxide 24.9 BUN 20 Creatinine 1.2 Glucose 105 Calcium 10.0 Cardiac Enzymes 01/02/25 Range/Units 11:22 Troponin I < 0.020 (0.0-0.045) ng/mL Liver Function 01/02/25 Range/Units 11:22 Total Bilirubin 2.0 H D (0.3-1.2) mg/dL AST 29 (0-34) U/L ALT 15 (10-49) U/L Alkaline Phosphatase 104 (46-116) U/L Albumin 4.4 (3.4-4.8) gm/dL Urine 01/02/25 Range/Units 13:32 Urine Color Lt-Yellow (Lt Yel-Yel) Urine Clarity Clear (Clear/Hazy) Urine pH 6.5 (5.0-7.0) Ur Specific [place] 1.016 (1.001-1.035) Urine Protein Trace (Neg - Trace) Urine Glucose (UA) Negative (Negative) Quality Measures Quality Measures none Advance care planning discussed with:: patient, spouse and significant other Medications Home Medications and Allergies Home Medications ?Medication ?Instructions ?Recorded ?Confirmed ?Type allopurinol 300 mg tablet 300 mg PO BID 05/19/18 01/02/25 History amlodipine 10 mg tablet 10 mg PO QDAY 05/19/18 01/02/25 History tamsulosin 0.4 mg capsule 0.8 mg PO .qhs 05/19/18 01/02/25 History aspirin 25 mg-dipyridamole 200 mg 1 cap PO BID 05/12/24 01/02/25 History capsule,ext.release 12 hr multiphase famotidine 20 mg tablet 20 mg PO .qhs 05/12/24 01/02/25 History carbidopa 25 mg-levodopa 250 mg 1 tab PO TID 01/02/25 01/02/25 History tablet donepezil 10 mg tablet 10 mg PO .qhs 01/02/25 01/02/25 History omeprazole 20 mg capsule,delayed 20 mg PO QDAY 01/02/25 01/02/25 History release solifenacin 5 mg tablet 5 mg PO .qhs 01/02/25 01/02/25 History Allergies Allergy/AdvReac Type Severity Reaction Status Date / Time No Known Allergies Allergy Verified 01/01/25 09:32 Visit Medications Acetaminophen (Acetaminophen 325 Mg Tablet) 650 mg PO Q6H PRN PRN Reason: PAIN SCALE 1-3 (mild Stop: 02/01/25 20:10 Acetaminophen (Acetaminophen Supp 650 Mg Supp) 650 mg HI Q6H PRN PRN Reason: Fever and Pain Stop: 02/01/25 20:14 Ondansetron HCl (Ondansetron Inj 2 Mg/Ml Inj 2 Ml) 4 mg IV Q6H PRN; Protocol PRN Reason: NAUSEA OR VOMITING Stop: 02/01/25 20:10 Pantoprazole Sodium (Pantoprazole Inj 40 Mg Vial) 40 mg IVP QDAY [facility] Stop: 02/02/25 08:59 Discontinued Medications Hydrocodone Bitart/Acetaminophen (Hydrocodone/Apap 5/325 Tablet) 1 tab PO X1 ONE Stop: 01/02/25 08:49 Last Admin: 01/02/25 09:11 Dose: 1 tab Assessment & Plan Plan This is an 79-year-old male with 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 Ground-level fall Presenting after he fell while trying to sit in chair this morning. Had another fall 2 weeks ago as he stumbled on an object. No loss of consciousness, seizures, or incontinence. Likely related to Parkinson's, as family reports frequent falls. Currently not complaining of pain. Musculoskeletal exam relatively benign. Unable to assess symptoms given altered mentation. Negative Head CT, hip/pelvic x-ray, right femur x-ray. ? Admit for observation ? Pain control, avoid narcotics ? Repeat physical exam when able to ? Consider further imaging as indicated Acute encephalopathy Parkinson's with dementia Has Parkinson's which she is on meds for. Follows up with PCP regularly, no signs of worsening Parkinson's, per family. Alert, but altered mentation, unable to participate in exam, symptoms started after NORCO. Had substantial jerking of all extremities on exam. Dissipate return to baseline after NORCO resolved. Will hold narcotics and DOPAMINE agonist until encephalopathy resolves. CT head was negative for acute pathology. No signs of focal neurological deficits, however will continue with neurochecks, seizure precautions. Will order EEG to rule out seizures. ? Pending EEG ? Neurochecks q.4h. ? Continue home DONEPEZIL 10 mg HS ? Resume home CARBIDOPA LEVODOPA 250 TID when able ? Avoid narcotics ? Consider MRI brain if symptoms persist or worsen Hyperbilirubinemia Bilirubin 2.0, no signs of abdominal pain. No jaundice, no scleral icterus. Possibly dehydrational. ? Daily CMP ? Consider further workup including abdominal ultrasound as indicated Hx of CVA 25 years ago, mild residual deficits. However has normal functional capacity at baseline. ? Continue home ASPIRIN-DIPYRIDAMOLE 25-200 mg BID HTN ? Continue home AMLODIPINE 10 mg daily GERD ? Continue PROTONIX 40 mg daily BPH ? Continue TAMSULOSIN 0.8 mg daily ? Continue home equivalent OXYBUTYNIN 5 mg HS GERD No signs or symptoms of exacerbation. ? Continue home ALLOPURINOL 300 mg daily Health maintenance Diet: Regular diet GI prophylaxis: PROTONIX DVT prophylaxis: HEPARIN Antibiotics: Not indicated CODE STATUS: Full code Disposition: Admitted observation for GLF. Patient case was discussed with attending, Gus Dash MD. Luke Franklin DO PGYI Attending Provider Attestation/Addendum 79-year-old male with past medical history significant for CVA, Parkinson's disease was admitted for altered mental status. The patient had a fall at home. No apparent head injury. CT scan of the brain without contrast showed no acute changes no hemorrhage no midline shift. EKG showed sinus rhythm with nonspecific ST-T wave changes, sinus arrhythmia. Patient was [facility]. He will have neurology evaluation tomorrow.
[2025-01-02] MEDS: ACETAMINOPHEN 325 MG TABLET 650 MG PO (20:41)
--- NOTE | 2025-01-02 22:05 | PC.NURSE ---
REPORT GIVEN TO MOSQUE- FLOOR RN
[2025-01-03] VITALS (8 sets, daily range): BP systolic 135–150; BP diastolic 65–81; PULSE 58–76; RESP 16–21; TEMP 36.4–36.9; O2SAT 91–98; BMI 12.0
--- NOTE | 2025-01-03 05:01 | PC.NURSE ---
EEG attempted and patient was too restless to successfully do at this time. Dr. Franklin stated to wait and the day team will evaluate as he does not want to oversedate the patient at this time.
[2025-01-03] MEDS: HEPARIN SOD INJ 5000 UNIT/ML VIAL SC ×2 (05:13→20:38)
--- NOTE | 2025-01-03 05:33 | RESP.EEG ---
EEG was attempted and stopped due to Pt non-compliance. PIERCE Hardin and Dr Franklin are aware. EEG to be attempted at a later time.
[2025-01-03 06:12] LABS: Basophils % (Auto) 1 % (0-2.5); Eosinophils # (Auto) 0.1 Thou/mm3 (0.0-0.5); Eosinophils % (Auto) 2 % (0-10); Hematocrit 41.8 % (41.0-53.0); Hemoglobin 14.9 g/dL (13.5-16.0); Immature Granulocytes % (Auto) 1 % (0-0); Immature Granulocytes Auto 0.03 Thou/mm3 (0.00-0.00); Lymphocytes # (Auto) 1.8 Thou/mm3 (1.0-4.8); Lymphocytes % (Auto) 28 % (10-50); Mean Corpuscular HGB Conc 35.6 g/dl (31.0-37.0); Mean Corpuscular Hemoglobin 35.6 pg (25.0-35.0); Mean Corpuscular Volume 100 fL (80-100); Monocytes % (Auto) 16 % (0-12); Neutrophils # (Auto) 3.4 Thou/mm3 (1.8-7.7); Neutrophils % (Auto) 54 % (37-80); Nucleated Red Blood Cell % 0 /100 WBC (0); Platelet Count 133 Thou/mm3 (140-440); RDW Standard Deviation 46.5 fL (35.1-43.9); Red Blood Count 4.18 Miln/mm3 (4.50-5.90); White Blood Count 6.4 Thou/mm3 (3.8-10.6)
[2025-01-03 06:31] LABS: Alanine Aminotransferase 25 U/L (10-49); Albumin, Serum 4.5 gm/dL (3.4-4.8); Albumin/Globulin Ratio 1.8 (1.2-2.2); Alkaline Phosphatase 109 U/L (46-116); Anion Gap 4 (7-16); Aspartate Amino Transferase 61 U/L (0-34); BUN/Creatinine Ratio 17 Ratio (12-20); Blood Urea Nitrogen 24 mg/dL (9-23); Calcium 10.4 mg/dL (8.3-10.6); Calcium (Corrected) 10.4 mg/dL (8.5-10.1); Carbon Dioxide 28.2 mMol/L (20.0-31.0); Chloride 106 mMol/L (98-107); Creatinine (Component) 1.4 mg/dL (0.6-1.3); Estimated Creatinine Clearance 44.7 mL/min (>60); Globulin 2.5 gm/dL (2.3-3.5); Glucose 87 mg/dL (74-106); Osmolality,Calculated 278 (275-295); Phosphorous 3.1 mg/dL (2.4-5.1); Potassium 3.9 mMol/L (3.4-5.1); Sodium 138 mMol/L (136-145); eGFR 51 See Note
[2025-01-03 06:41] LABS: Vitamin B12 > 2000 pg/mL (211-911)
[2025-01-03] MEDS: allopurinoL 100 MG TABLET 300 MG PO (09:04)
[2025-01-03] MEDS: amLODIPine BESYLATE 5 MG TABLET 10 MG PO (09:05)
[2025-01-03] MEDS: PANTOPRAZOLE INJ 40 MG VIAL IVP (09:05)
--- NOTE | 2025-01-03 13:26 | ESPR_ITS ---
<Statement entered by Kenji Chang MD - 01/04/25 17:48> I discussed with and supervised the mechanical intern physician involved in the care of this patient. Patient assessment and plan was discussed with entire medicine team, including my attending. I agree with the assessment and plan as documented by mechanical intern doctor. Patient care was discussed with my attending physician Dr. Chriss Chang, PGY-2 Documentation for date of: 01/03/25 Subjective Subjective Interval history: Patient was seen and examined at bedside this AM. No acute exents overnight. Patient currently asleep. Neurology, Dr. Quintana consulted re: Parkinson's medication dose adjustment. Appreciate recommendations Exam Vital Signs Temp Pulse Resp BP Pulse Ox O2 Del Method O2 Flow Rate 97.6 F 63 17 143/81 H 98 Nasal Cannula 2 01/03/25 11:59 01/03/25 11:59 01/03/25 11:59 01/03/25 11:59 01/03/25 11:59 01/03/25 11:59 01/03/25 11:59 Narrative Exam Constitutional Patient asleep HEENT Vision grossly intact. Patent nares. Trachea midline Respiratory Chest normal on inspection and clear auscultation bilaterally Cardiovascular S1 and S2 audible, RRR. No murmurs carotid bruit. No gross JVD. Abdominal Soft and non tender to palpation in all quadrants. BS + Genitourinary No bladder tenderness, no flank pain. Normal to palpation Musculoskeletal Extremities tone within normal limits. No LE edema. Neurological Patient asleep Skin Warm, dry and intact. No apparent lesions. Objective Labs 01/06/25 04:24 01/06/25 04:24 Labs: Laboratory Results - last 24 hr 01/02/25 01/03/25 13:32 05:05 WBC 6.4 RBC 4.18 L Hgb 14.9 Hct 41.8 MCV 100 MCH 35.6 H MCHC 35.6 RDW Std Deviation 46.5 H Plt Count 133 L Neut % (Auto) 54 Lymph % (Auto) 28 [place] % (Auto) 16 H Eos % (Auto) 2 Baso % (Auto) 1 Neut # (Auto) 3.4 Lymph # (Auto) 1.8 [place] # (Auto) 1.0 H Eos # (Auto) 0.1 Baso # (Auto) 0.0 Immature Gran # (Auto) 0.03 H Absolute Nucleated RBC 0.00 Immature Gran % 1 H Nucleated RBC % 0 Sodium 138 Potassium 3.9 Chloride 106 Carbon Dioxide 28.2 Anion Gap 4 L BUN 24 H Creatinine 1.4 H Estim Creat Clear Calc 44.7 L eGFR 51 L BUN/Creatinine Ratio 17 Glucose 87 Calculated Osmolality 278 Calcium 10.4 Corrected Calcium 10.4 H Phosphorus 3.1 Magnesium 2.0 Total Bilirubin 2.0 H AST 61 H ALT 25 Alkaline Phosphatase 109 Total Protein 7.0 Albumin 4.5 Globulin 2.5 Albumin/Globulin Ratio 1.8 Vitamin B12 > 2000 H Ur Collection Type Clean Catch Urine Color Lt-Yellow Urine Clarity Clear Urine pH 6.5 Ur Specific [place] 1.016 Urine Protein Trace Urine Glucose (UA) Negative Urine Ketones Negative Urine Blood Negative Urine Nitrite Negative Urine Bilirubin Negative Urine Urobilinogen (Auto) Negative Ur Leukocyte Esterase Negative Urine RBC 1 Urine WBC 1 Ur Squamous Epith Cells 0 Urine Bacteria None Ur Culture Indicated? Not Indicated Quality Measures Quality Measures none Advance care planning discussed with:: patient Assessment & Plan Assessment Current Active Medications: Generic Name Dose Route Start Last Admin Trade Name Freq PRN Reason Stop Dose Admin Acetaminophen 650 mg 01/02/25 20:11 01/02/25 20:41 Acetaminophen 325 Mg Tablet PO 02/01/25 20:10 650 mg Q6H PRN Administration PAIN SCALE 1-3 (mild Acetaminophen 650 mg 01/02/25 20:11 Acetaminophen Supp 650 Mg Supp [place] 02/01/25 20:14 Q6H PRN Fever and Pain Protocol Allopurinol 300 mg 01/03/25 09:00 01/03/25 09:04 Allopurinol 100 Mg Tablet PO 02/02/25 08:59 300 mg QDAY JACY Administration Amlodipine Besylate 10 mg 01/03/25 09:00 01/03/25 09:05 Amlodipine Besylate 5 Mg Tablet PO 02/02/25 08:59 10 mg QDAY JACY Administration Dipyridamole 200 mg 01/03/25 07:00 01/03/25 09:06 Aspirin-Dipyridam Er 25-200 Mg Home Medication- Please Speak With Patient Caregiver To Hav PO 02/02/25 06:59 Not Given QDAY JACY Donepezil HCl 10 mg 01/03/25 21:00 Donepezil Hcl 5 Mg Tablet PO 02/02/25 20:59 HS JACY Heparin Sodium (Porcine) 5,000 unit 01/03/25 21:00 Heparin Sod Inj 5000 Unit/Ml Vial SC 01/17/25 20:59 BID JACY Sodium Chloride 1,000 mls @ 100 mls/hr 01/03/25 09:18 Ns IV 01/03/25 19:17 .Q10H ONE Ondansetron HCl 4 mg 01/02/25 20:11 Ondansetron Inj 2 Mg/Ml Inj 2 Ml IV 02/01/25 20:10 Q6H PRN NAUSEA OR VOMITING Protocol Oxybutynin Chloride 5 mg 01/03/25 21:00 Oxybutynin Chlor 5 Mg Tablet PO 02/02/25 20:59 HS JACY Pantoprazole Sodium 40 mg 01/03/25 09:00 01/03/25 09:05 Pantoprazole Inj 40 Mg Vial IVP 02/02/25 08:59 40 mg QDAY JACY Administration Tamsulosin HCl 0.8 mg 01/03/25 21:00 Tamsulosin Hcl 0.4 Mg Capsule PO 02/02/25 20:59 HS JACY Plan This is an 79-year-old male with 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 Acute encephalopathy?resolving Parkinson's with dementia Patient has history of Parkinson's and currently on carbidopa/levodopa as home medication. History of recurrent falls over the past few weeks. Plan: ? Pending EEG ? Neurochecks q.4h. ? Continue home DONEPEZIL 10 mg HS ? Avoid narcotics ? Neurology, Dr. Quintana consulted. Appreciate recommendations Ground-level fall Presenting after he fell while trying to sit in chair this morning. Had another fall 2 weeks ago as he stumbled on an object. No loss of consciousness, seizures, or incontinence. Likely related to Parkinson's, as family reports frequent falls. Currently not complaining of pain. Musculoskeletal exam relatively benign. Negative Head CT, hip/pelvic x-ray, right femur x-ray. Plan: ? Pain control, avoid narcotics Elevated creatinine Creatinine elevated at 1.4. Out of range for acute kidney injury based on KDIGO guidelines. Baseline 1.2 Plan: ? 1 L normal saline IV fluids at 100 cc/h Hyperbilirubinemia Bilirubin 2.0, no signs of abdominal pain. No jaundice, no scleral icterus. Possibly dehydrational. Plan: ? Daily CMP Hx of CVA 25 years ago, mild residual deficits. However has normal functional capacity at baseline. Plan: ? Continue home ASPIRIN-DIPYRIDAMOLE 25-200 mg BID HTN BP 143/81 Plan: ? Continue home AMLODIPINE 10 mg daily GERD Plan: ? Continue PROTONIX 40 mg daily BPH ? Continue TAMSULOSIN 0.8 mg daily ? Continue home equivalent OXYBUTYNIN 5 mg HS GERD No signs or symptoms of exacerbation. Plan: ? Continue home ALLOPURINOL 300 mg daily Health maintenance: Disposition: Pending 3 midnights for SNF placement. Pending neurology recommendations. Diet: Regular Lines: pIVs GI Prophylaxis: Pantoprazole Thrombo Prophylaxis: Heparin Code status: FULL CODE Plan of care discussed with Attending Dr. Dowd and PGY2 Dr. Bernardo Hutson MD PGY 1 Attending Provider Attestation/Addendum I attest that I was physically present for the evaluation, physical examination, lab and imaging review of the patient with the residents. I discussed the case with the residents and agree with the findings and plans of care as documented above. Patient was admitted overnight for management of acute encephalopathy. Patient has history of Parkinson's disease, has been having fall episodes. Patient did receive a dose of [place] in the ED. At bedside today, patient is awake and alert, able to answer questions and follow commands but oriented x 2. Moves all his limbs spontaneously. Neurology on board, awaiting EEG, we will adjust his Sinemet dosing frequency to twice daily. Continues to be on donepezil. We will obtain physical therapy and continue to monitor him closely. Duc Dowd MD
--- NOTE | 2025-01-03 15:09 | PC.SS ---
Addendum entered by TAMIA Christiansen 01/04/25 09:01: SS update: Reached out to [facility] and they confirm they can accept the patient at time of d/c. Updated patient's family. Addendum entered by TAMIA Christiansen 01/04/25 08:41: SS follow up: presented SNF choices. Preferred SNF is [facility]. Patient's , Gloria contact number. Addendum entered by TAMIA Christiansen 01/03/25 16:52: PASRR completed. Addendum entered by TAMIA Christiansen 01/03/25 15:23: Rounding note: pending neurology recomendations. Original Note: SS follow up: SNF inquiry sent via [employer]. Pending responses.
[2025-01-03] MEDS: SODIUM CHLORIDE 0.9% 1000 ML 1,000 ML 100 ML IV (19:37)
[2025-01-03] MEDS: DONEPEZIL HCL 5 MG TABLET 10 MG PO (20:38)
[2025-01-03] MEDS: OXYBUTYNIN CHLOR 5 MG TABLET PO (20:38)
[2025-01-03] MEDS: TAMSULOSIN HCL 0.4 MG CAPSULE 0.8 MG PO (20:38)
--- NOTE | 2025-01-03 22:42 | PD.NEUROCONS ---
History of Present Illness Data of Consult Requesting Physician: Duc Dowd MD Primary Care Provider: Cristino Henning MD Consult Narrative cc:: cc: Duc Dowd MD Review of Systems Review of Systems ROS Unobtainable: unobtainable due to mental status Past Medical History Past Medical History NEUROLOGIC: Positive Neurological Disorders, Transient Ischemic Attacks (TIA), Dementia and Parkinson's Disease; Negative Seizures CARDIAC: Positive Cardiac Disorders and Hypertension; Negative Congestive Heart Failure RESPIRATORY: Negative Chronic Obstructive Pulmonary Disease (COPD) GASTROINTESTINAL: Positive Gastrointestinal Disorders and Obesity GENITOURINARY: Positive Genitourinary Disorders and Benign Prostatic Hyperplasia; Negative Renal Disease MUSCULOSKELETAL: Positive Musculoskeletal Disorders and Gout ENT: Positive Cataracts ENDOCRINE: Negative Endocrine Disorders, Diabetes Mellitus Type 1 or Diabetes Mellitus Type 2 HEMATOLOGIC: Negative Blood Disorders OTHER HISTORY: Negative Autoimmune Disease, Falls, Blood Transfusions or Anesthesia Reactions Family History FAMILY HISTORY: Positive Family Cardiac Disorders Social History SMOKING STATUS: Never smoker SUBSTANCE USE: does not use ALCOHOL: Never Meds Home Medications and Allergies Home Medications ?Medication ?Instructions ?Recorded ?Confirmed ?Type allopurinol 300 mg tablet 300 mg PO BID 05/19/18 01/02/25 History amlodipine 10 mg tablet 10 mg PO QDAY 05/19/18 01/02/25 History tamsulosin 0.4 mg capsule 0.8 mg PO .qhs 05/19/18 01/02/25 History aspirin 25 mg-dipyridamole 200 mg 1 cap PO BID 05/12/24 01/02/25 History capsule,ext.release 12 hr multiphase famotidine 20 mg tablet 20 mg PO .qhs 05/12/24 01/02/25 History carbidopa 25 mg-levodopa 250 mg 1 tab PO TID 01/02/25 01/02/25 History tablet donepezil 10 mg tablet 10 mg PO .qhs 01/02/25 01/02/25 History omeprazole 20 mg capsule,delayed 20 mg PO QDAY 01/02/25 01/02/25 History release solifenacin 5 mg tablet 5 mg PO .qhs 01/02/25 01/02/25 History Allergies Allergy/AdvReac Type Severity Reaction Status Date / Time No Known Allergies Allergy Verified 01/01/25 09:32 Exam - Neurology Vital Signs Temp Pulse Resp BP Pulse Ox O2 Del Method O2 Flow Rate 98.2 F 65 17 144/77 H 98 Nasal Cannula 2 01/03/25 20:00 01/03/25 20:00 01/03/25 20:00 01/03/25 20:00 01/03/25 20:00 01/03/25 20:00 01/03/25 20:00 Narrative Exam GENERAL APPEARANCE: Well hydrated, well-nourished in no acute distress. HEENT: Normocephalic, atraumatic, extraocular movements intact. Pupils: Equal reacting to light and accommodation NECK: Supple, no JVD or bruits. CARDIOVASULAR: Heart: S1, S2 heard, regular without S3-S4 or murmur no rubs or gallops. LUNGS/CHEST: Clear to auscultation bilaterally. No rails, rhonchi, or wheezing. Normal inspection. ABDOMEN: Soft, nontender, with normal bowel sounds. No pulsatile masses. No rebound, rigidity, or guarding. Normal inspection and palpation. EXTREMITIES: Normal inspection and palpation. No edema, clubbing or cyanosis. SKIN: Warm and dry without rashes. Normal inspection. MUSCULOSKELETAL: No cervical, thoracic, lumbar or midline bony tenderness. Normal inspection. NEURO: Alert, awake and oriented x2. Cranial nerves: II through XII grossly intact. Speech and language: Normal with no dysarthria or dysphasia. Motor system: Tone and bulk: Normal: Strength: 5 out of 5 in all 4 extremities; No pronator drift noted. Deep tendon reflexes: 2+ bilaterally symmetrical. Plantar reflex: Downgoing bilaterally. Sensory system: Intact to all modalities of sensation bilaterally. Coordination: Intact to [id number] and [id number] test bilaterally. Minimal postural/intention tremors in both upper extremities but no resting tremors. Gait: Not tested. No signs of meningeal irritation noted. PSYCHIATRIC: Fluctuating mood and affect. Results Labs 01/04/25 04:56 01/04/25 04:56 Labs: Short CBC 01/03/25 Range/Units 05:05 WBC 6.4 (3.8-10.6) Thou/mm3 Hgb 14.9 (13.5-16.0) g/dL Hct 41.8 (41.0-53.0) % Plt Count 133 L (140-440) Thou/mm3 BMP 01/03/25 05:05 Sodium 138 Potassium 3.9 Chloride 106 Carbon Dioxide 28.2 BUN 24 H Creatinine 1.4 H Glucose 87 Calcium 10.4 Liver Function 01/03/25 Range/Units 05:05 Total Bilirubin 2.0 H (0.3-1.2) mg/dL AST 61 H (0-34) U/L ALT 25 (10-49) U/L Alkaline Phosphatase 109 (46-116) U/L Albumin 4.5 (3.4-4.8) gm/dL Assessment & Plan Assessment and plan (1) Altered mental status: Status: Acute Assessment and plan: Improving, Follow-up with EEG. (2) Parkinson's disease: Status: Acute Assessment and plan: With dementia and frequent falls B12 over 1999 CT head: Negative for acute intracranial abnormalities Consider doing MRI brain to evaluate further Change the frequency of Sinemet to 1 tablet twice a day. (3) Old cerebrovascular accident (CVA) without late effect: Status: Acute Assessment and plan: Continue with aspirin dipyridamole No recurrence reported after 25 years
[2025-01-04] VITALS (10 sets, daily range): BP systolic 135–161; BP diastolic 66–88; PULSE 52–78; RESP 14–18; TEMP 36.4–36.9; O2SAT 94–99
--- NOTE | 2025-01-04 05:45 | RESP.EEG ---
EEG has been completed and is ready for MD interpretation.
[2025-01-04 05:47] LABS: Basophils % (Auto) 1 % (0-2.5); Eosinophils # (Auto) 0.1 Thou/mm3 (0.0-0.5); Eosinophils % (Auto) 2 % (0-10); Hematocrit 37.2 % (41.0-53.0); Hemoglobin 13.1 g/dL (13.5-16.0); Immature Granulocytes % (Auto) 0 % (0-0); Immature Granulocytes Auto 0.02 Thou/mm3 (0.00-0.00); Lymphocytes # (Auto) 1.4 Thou/mm3 (1.0-4.8); Lymphocytes % (Auto) 27 % (10-50); Mean Corpuscular HGB Conc 35.2 g/dl (31.0-37.0); Mean Corpuscular Hemoglobin 35.3 pg (25.0-35.0); Mean Corpuscular Volume 100 fL (80-100); Monocytes # (Auto) 0.8 Thou/mm3 (0.0-0.8); Monocytes % (Auto) 15 % (0-12); Neutrophils # (Auto) 2.9 Thou/mm3 (1.8-7.7); Neutrophils % (Auto) 55 % (37-80); Nucleated Red Blood Cell % 0 /100 WBC (0); Platelet Count 108 Thou/mm3 (140-440); RDW Standard Deviation 46.6 fL (35.1-43.9); Red Blood Count 3.71 Miln/mm3 (4.50-5.90); White Blood Count 5.3 Thou/mm3 (3.8-10.6)
[2025-01-04 06:24] LABS: Alanine Aminotransferase 19 U/L (10-49); Albumin, Serum 3.8 gm/dL (3.4-4.8); Albumin/Globulin Ratio 1.8 (1.2-2.2); Alkaline Phosphatase 90 U/L (46-116); Anion Gap 8 (7-16); Aspartate Amino Transferase 32 U/L (0-34); BUN/Creatinine Ratio 22 Ratio (12-20); Bilirubin,Total 0.9 mg/dL (0.3-1.2); Blood Urea Nitrogen 31 mg/dL (9-23); Calcium 9.2 mg/dL (8.3-10.6); Calcium (Corrected) 9.4 mg/dL (8.5-10.1); Chloride 110 mMol/L (98-107); Creatinine (Component) 1.4 mg/dL (0.6-1.3); Estimated Creatinine Clearance 44.7 mL/min (>60); Globulin 2.1 gm/dL (2.3-3.5); Glucose 92 mg/dL (74-106); Osmolality,Calculated 289 (275-295); Phosphorous 2.8 mg/dL (2.4-5.1); Potassium 3.7 mMol/L (3.4-5.1); Sodium 142 mMol/L (136-145); Total Protein 5.9 gm/dL (5.7-8.2); eGFR 51 See Note
[2025-01-04] MEDS: ACETAMINOPHEN 325 MG TABLET 650 MG PO ×3 (06:58→23:45)
[2025-01-04] MEDS: allopurinoL 100 MG TABLET 300 MG PO (08:39)
[2025-01-04] MEDS: HEPARIN SOD INJ 5000 UNIT/ML VIAL SC ×2 (08:39→20:37)
[2025-01-04] MEDS: amLODIPine BESYLATE 5 MG TABLET 10 MG PO (08:39)
[2025-01-04] MEDS: PANTOPRAZOLE INJ 40 MG VIAL IVP (08:41)
[2025-01-04] MEDS: CARBIDOPA/LEVODOPA 25/250 MG TABLET 1 TAB PO ×2 (08:56→20:35)
[2025-01-04] MEDS: POLYETHYLENE GLYCOL 17 GM PACKET PO (10:37)
--- NOTE | 2025-01-04 10:55 | ESPR_ITS ---
<Statement entered by Kenji Chang MD - 01/04/25 18:08> I discussed with and supervised the dental intern physician involved in the care of this patient. Patient assessment and plan was discussed with entire medicine team, including my attending. I agree with the assessment and plan as documented by dental intern doctor. Patient care was discussed with my attending physician Dr. Chriss Chang, PGY-2 Documentation for date of: 01/04/25 Subjective Subjective Interval history: Patient was seen and examined at bedside this AM. No acute exents overnight. Patient tolerating diet, adequate urine output and mentation is at baseline. Patient endorses improvement of tremor. Decreased sinemet to 1 tab p.o. twice daily as per neurology recommendations. Pending EEG read. Exam Vital Signs Temp Pulse Resp BP Pulse Ox O2 Del Method O2 Flow Rate 97.9 F 53 L 14 135/88 H 94 L Nasal Cannula 2 01/04/25 07:52 01/04/25 10:17 01/04/25 10:17 01/04/25 08:39 01/04/25 10:17 01/04/25 07:52 01/04/25 10:17 Narrative Exam Constitutional Alert, oriented x 3 and comfortable. Elderly male HEENT Vision grossly intact. Patent nares. Trachea midline Respiratory Chest normal on inspection and clear auscultation bilaterally Cardiovascular S1 and S2 audible, RRR. No murmurs carotid bruit. No gross JVD. Abdominal Soft and non tender to palpation in all quadrants. BS + Genitourinary No bladder tenderness, no flank pain. Normal to palpation Musculoskeletal Extremities tone within normal limits. No LE edema. Neurological CN II - XII grossly intact. Extremity motor and sensation grossly intact. Resting tremor of left arm, increased tone. Skin Warm, dry and intact. No apparent lesions. Psychiatric Patient has good affect, is cooperative Objective Labs 01/06/25 04:24 01/06/25 04:24 Labs: Laboratory Results - last 24 hr 01/04/25 04:56 WBC 5.3 RBC 3.71 L Hgb 13.1 L Hct 37.2 L MCV 100 MCH 35.3 H MCHC 35.2 RDW Std Deviation 46.6 H Plt Count 108 L Neut % (Auto) 55 Lymph % (Auto) 27 [place] % (Auto) 15 H Eos % (Auto) 2 Baso % (Auto) 1 Neut # (Auto) 2.9 Lymph # (Auto) 1.4 [place] # (Auto) 0.8 Eos # (Auto) 0.1 Baso # (Auto) 0.0 Immature Gran # (Auto) 0.02 H Absolute Nucleated RBC 0.00 Immature Gran % 0 Nucleated RBC % 0 Sodium 142 Potassium 3.7 Chloride 110 H Carbon Dioxide 24.0 Anion Gap 8 BUN 31 H Creatinine 1.4 H Estim Creat Clear Calc 44.7 L eGFR 51 L BUN/Creatinine Ratio 22 H Glucose 92 Calculated Osmolality 289 Calcium 9.2 Corrected Calcium 9.4 Phosphorus 2.8 Magnesium 2.0 Total Bilirubin 0.9 D AST 32 ALT 19 Alkaline Phosphatase 90 Total Protein 5.9 Albumin 3.8 D Globulin 2.1 L Albumin/Globulin Ratio 1.8 Quality Measures Quality Measures none Advance care planning discussed with:: patient Assessment & Plan Assessment Current Active Medications: Generic Name Dose Route Start Last Admin Trade Name Freq PRN Reason Stop Dose Admin Acetaminophen 650 mg 01/02/25 20:11 01/04/25 06:58 Acetaminophen 325 Mg Tablet PO 02/01/25 20:10 650 mg Q6H PRN Administration PAIN SCALE 1-3 (mild Acetaminophen 650 mg 01/04/25 09:51 Acetaminophen Supp 650 Mg Supp MD 02/01/25 20:14 Q6H PRN Fever>101 and Pain 1-3 Protocol Allopurinol 300 mg 01/03/25 09:00 01/04/25 08:39 Allopurinol 100 Mg Tablet PO 02/02/25 08:59 300 mg QDAY JACY Administration Amlodipine Besylate 10 mg 01/03/25 09:00 01/04/25 08:39 Amlodipine Besylate 5 Mg Tablet PO 02/02/25 08:59 10 mg QDAY JACY Administration Carbidopa/Levodopa 1 tab 01/04/25 09:00 01/04/25 08:56 Carbidopa/Levodopa 25/250 Mg Tablet PO 02/03/25 08:59 1 tab BID JACY Administration Dipyridamole 200 mg 01/03/25 07:00 01/03/25 09:06 Aspirin-Dipyridam Er 25-200 Mg Home Medication- Please Speak With Patient Caregiver To Hav PO 02/02/25 06:59 Not Given QDAY JACY Donepezil HCl 10 mg 01/03/25 21:00 01/03/25 20:38 Donepezil Hcl 5 Mg Tablet PO 02/02/25 20:59 10 mg HS JACY Administration Heparin Sodium (Porcine) 5,000 unit 01/03/25 21:00 01/04/25 08:39 Heparin Sod Inj 5000 Unit/Ml Vial SC 01/17/25 20:59 5,000 unit BID JACY Administration Ondansetron HCl 4 mg 01/02/25 20:11 Ondansetron Inj 2 Mg/Ml Inj 2 Ml IV 02/01/25 20:10 Q6H PRN NAUSEA OR VOMITING Protocol Oxybutynin Chloride 5 mg 01/03/25 21:00 01/03/25 20:38 Oxybutynin Chlor 5 Mg Tablet PO 02/02/25 20:59 5 mg HS JACY Administration Pantoprazole Sodium 40 mg 01/03/25 09:00 01/04/25 08:41 Pantoprazole Inj 40 Mg Vial IVP 02/02/25 08:59 40 mg QDAY JACY Administration Polyethylene Glycol 17 gm 01/04/25 10:30 01/04/25 10:37 Polyethylene Glycol 17 Gm Packet PO 02/03/25 10:29 17 gm QDAY JACY Administration Tamsulosin HCl 0.8 mg 01/03/25 21:00 01/03/25 20:38 Tamsulosin Hcl 0.4 Mg Capsule PO 02/02/25 20:59 0.8 mg HS JACY Administration Plan This is an 79-year-old male with 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 Acute encephalopathy?resolved Parkinson's with dementia Patient has history of Parkinson's and currently on carbidopa/levodopa as home medication. History of recurrent falls over the past few weeks. Patient currently alert and oriented x 3 Plan: ? Pending EEG results ? Neurochecks q.4h. ? Continue home DONEPEZIL 10 mg HS ? Decreased home Sinemet dose to 1 tab p.o. twice daily from 3 times daily as per neurology recommendations. ? Avoid narcotics ? Will consider MRI brain pending EEG read as per neurology recommendations. ? Neurology, Dr. Quintana consulted. Appreciate recommendations Ground-level fall Presenting after he fell while trying to sit in chair this morning. Had another fall 2 weeks ago as he stumbled on an object. No loss of consciousness, seizures, or incontinence. Likely related to Parkinson's, as family reports frequent falls. Currently not complaining of pain. Musculoskeletal exam relatively benign. Negative Head CT, hip/pelvic x-ray, right femur x-ray. Plan: ? Pain control, avoid narcotics Elevated creatinine Creatinine elevated at 1.4. Out of range for acute kidney injury based on KDIGO guidelines. Baseline 1.2 Plan: ? Encourage p.o. fluid intake. Hyperbilirubinemia Bilirubin 2.0, no signs of abdominal pain. No jaundice, no scleral icterus. Possibly dehydrational. Plan: ? Daily CMP Hx of CVA 25 years ago, mild residual deficits. However has normal functional capacity at baseline. Plan: ? Continue home ASPIRIN-DIPYRIDAMOLE 25-200 mg BID HTN BP 135/88 Plan: ? Continue home AMLODIPINE 10 mg daily GERD Plan: ? Continue PROTONIX 40 mg IV daily BPH ? Continue TAMSULOSIN 0.8 mg daily ? Continue home equivalent OXYBUTYNIN 5 mg HS GERD No signs or symptoms of exacerbation. Plan: ? Continue home ALLOPURINOL 300 mg daily Health maintenance: Disposition: Pending 3 midnights for SNF placement. Pending EEG results and Neuro recommendations Diet: Regular Lines: pIVs GI Prophylaxis: Pantoprazole Thrombo Prophylaxis: Heparin Code status: FULL CODE Plan of care discussed with Attending Dr. Dowd and PGY2 Dr. Bernardo Hutson MD PGY 1 Attending Provider Attestation/Addendum I attest that I was physically present for the evaluation, physical examination, lab and imaging review of the patient with the residents. I discussed the case with the residents and agree with the findings and plans of care as documented above. At bedside today, patient is alert and awake, oriented x 3, able to answer questions and follow commands appropriately. He does have some resting tremor on his left arm. Continues to be on Sinemet twice daily, donepezil 10. We will continue with physical therapy. Awaiting EEG results. PT recommended continuation of physical therapy at SNF, pending placement. Duc Dowd MD
[2025-01-04] MEDS: LIDOCAINE 5% 1 PATCH TOP (20:29)
[2025-01-04] MEDS: TAMSULOSIN HCL 0.4 MG CAPSULE 0.8 MG PO (20:34)
[2025-01-04] MEDS: OXYBUTYNIN CHLOR 5 MG TABLET PO (20:34)
[2025-01-04] MEDS: DONEPEZIL HCL 5 MG TABLET 10 MG PO (20:35)
--- NOTE | 2025-01-04 21:27 | PD.NEUROPROG ---
Documentation for date of: 01/04/25 Subjective Subjective Interval history: Patient was seen in [facility] today with his at the bedside. His mental status is back to baseline. Continues to complain of pain in the lower back. Exam - Neurology Vital Signs Temp Pulse Resp BP Pulse Ox O2 Del Method O2 Flow Rate 98.5 F 55 L 17 161/82 H 95 Nasal Cannula 2 01/04/25 20:00 01/04/25 20:00 01/04/25 20:00 01/04/25 20:00 01/04/25 20:00 01/04/25 20:00 01/04/25 20:00 Narrative Exam GENERAL APPEARANCE: Well hydrated, well-nourished in no acute distress. HEENT: Normocephalic, atraumatic, extraocular movements intact. Pupils: Equal reacting to light and accommodation NECK: Supple, no JVD or bruits. CARDIOVASULAR: Heart: S1, S2 heard, regular without S3-S4 or murmur no rubs or gallops. LUNGS/CHEST: Clear to auscultation bilaterally. No rails, rhonchi, or wheezing. Normal inspection. ABDOMEN: Soft, nontender, with normal bowel sounds. No pulsatile masses. No rebound, rigidity, or guarding. Normal inspection and palpation. EXTREMITIES: Normal inspection and palpation. No edema, clubbing or cyanosis. SKIN: Warm and dry without rashes. Normal inspection. MUSCULOSKELETAL: He was able to sit up at the edge of the bed with the significant pain in the lower back. She NEURO: Alert, awake and oriented x2. Cranial nerves: II through XII grossly intact. Speech and language: Normal with no dysarthria or dysphasia. Motor system: Tone and bulk: Normal: Strength: 5 out of 5 in all 4 extremities; No pronator drift noted. Deep tendon reflexes: 2+ bilaterally symmetrical. Plantar reflex: Downgoing bilaterally. Sensory system: Intact to all modalities of sensation bilaterally. Coordination: Intact to [id number] and pfpm-pabk-hmde test bilaterally. Minimal postural/intention tremors in both upper extremities but no resting tremors. Gait: Not tested. No signs of meningeal irritation noted. PSYCHIATRIC: Normal sinus mood and affect. Objective Labs 01/04/25 04:56 01/04/25 04:56 Labs: Laboratory Results - last 24 hr 01/04/25 04:56 WBC 5.3 RBC 3.71 L Hgb 13.1 L Hct 37.2 L MCV 100 MCH 35.3 H MCHC 35.2 RDW Std Deviation 46.6 H Plt Count 108 L Neut % (Auto) 55 Lymph % (Auto) 27 [place] % (Auto) 15 H Eos % (Auto) 2 Baso % (Auto) 1 Neut # (Auto) 2.9 Lymph # (Auto) 1.4 [place] # (Auto) 0.8 Eos # (Auto) 0.1 Baso # (Auto) 0.0 Immature Gran # (Auto) 0.02 H Absolute Nucleated RBC 0.00 Immature Gran % 0 Nucleated RBC % 0 Sodium 142 Potassium 3.7 Chloride 110 H Carbon Dioxide 24.0 Anion Gap 8 BUN 31 H Creatinine 1.4 H Estim Creat Clear Calc 44.7 L eGFR 51 L BUN/Creatinine Ratio 22 H Glucose 92 Calculated Osmolality 289 Calcium 9.2 Corrected Calcium 9.4 Phosphorus 2.8 Magnesium 2.0 Total Bilirubin 0.9 D AST 32 ALT 19 Alkaline Phosphatase 90 Total Protein 5.9 Albumin 3.8 D Globulin 2.1 L Albumin/Globulin Ratio 1.8 Assessment & Plan Assessment and plan (1) Altered mental status: Status: Resolved Assessment and plan: Back to baseline. (2) Parkinson's disease: Status: Acute Assessment and plan: With dementia and frequent falls B12 over [address] CT head: Negative for acute intracranial abnormalities Continue with Sinemet 1 tablet twice a day. Added Lidoderm patch for topical pain relief for lower back status post recent fall so that he can participate with the physical therapy tomorrow. (3) Old cerebrovascular accident (CVA) without late effect: Status: Acute Assessment and plan: Continue with aspirin dipyridamole No recurrence reported after 25 years.
[2025-01-05] VITALS (12 sets, daily range): BP systolic 131–171; BP diastolic 75–85; PULSE 51–62; RESP 14–96; TEMP 36.3–36.8; O2SAT 93–99
[2025-01-05] MEDS: ACETAMINOPHEN 325 MG TABLET 650 MG PO ×3 (05:22→20:50)
[2025-01-05 05:49] LABS: Basophils % (Auto) 1 % (0-2.5); Eosinophils # (Auto) 0.2 Thou/mm3 (0.0-0.5); Eosinophils % (Auto) 3 % (0-10); Hematocrit 37.7 % (41.0-53.0); Hemoglobin 13.5 g/dL (13.5-16.0); Immature Granulocytes % (Auto) 0 % (0-0); Immature Granulocytes Auto 0.02 Thou/mm3 (0.00-0.00); Lymphocytes # (Auto) 1.7 Thou/mm3 (1.0-4.8); Lymphocytes % (Auto) 34 % (10-50); Mean Corpuscular HGB Conc 35.8 g/dl (31.0-37.0); Mean Corpuscular Hemoglobin 35.5 pg (25.0-35.0); Mean Corpuscular Volume 99 fL (80-100); Monocytes # (Auto) 0.6 Thou/mm3 (0.0-0.8); Monocytes % (Auto) 12 % (0-12); Neutrophils # (Auto) 2.6 Thou/mm3 (1.8-7.7); Neutrophils % (Auto) 51 % (37-80); Nucleated Red Blood Cell % 0 /100 WBC (0); Platelet Count 130 Thou/mm3 (140-440); RDW Standard Deviation 45.1 fL (35.1-43.9); White Blood Count 5.2 Thou/mm3 (3.8-10.6)
[2025-01-05 06:28] LABS: Alanine Aminotransferase 14 U/L (10-49); Albumin/Globulin Ratio 1.7 (1.2-2.2); Alkaline Phosphatase 107 U/L (46-116); Anion Gap 5 (7-16); Aspartate Amino Transferase 22 U/L (0-34); BUN/Creatinine Ratio 19 Ratio (12-20); Blood Urea Nitrogen 26 mg/dL (9-23); Calcium 9.8 mg/dL (8.3-10.6); Calcium (Corrected) 9.8 mg/dL (8.5-10.1); Carbon Dioxide 26.6 mMol/L (20.0-31.0); Chloride 108 mMol/L (98-107); Creatinine (Component) 1.4 mg/dL (0.6-1.3); Estimated Creatinine Clearance 44.7 mL/min (>60); Globulin 2.3 gm/dL (2.3-3.5); Glucose 103 mg/dL (74-106); Magnesium 2.1 mg/dL (1.6-2.6); Osmolality,Calculated 284 (275-295); Potassium 3.8 mMol/L (3.4-5.1); Sodium 140 mMol/L (136-145); Total Protein 6.3 gm/dL (5.7-8.2); eGFR 51 See Note
[2025-01-05] MEDS: HEPARIN SOD INJ 5000 UNIT/ML VIAL SC ×2 (09:22→20:26)
[2025-01-05] MEDS: PANTOPRAZOLE INJ 40 MG VIAL IVP (09:22)
[2025-01-05] MEDS: POLYETHYLENE GLYCOL 17 GM PACKET PO (09:23)
[2025-01-05] MEDS: allopurinoL 100 MG TABLET 300 MG PO (09:24)
[2025-01-05] MEDS: CARBIDOPA/LEVODOPA 25/250 MG TABLET 1 TAB PO ×2 (09:25→20:26)
[2025-01-05] MEDS: amLODIPine BESYLATE 5 MG TABLET 10 MG PO (10:00)
--- NOTE | 2025-01-05 18:31 | PD.RESPRO ---
Documentation for date of: 01/05/25 Subjective Subjective Interval history: No bowel movements since admission, patient on MiraLAX packet, Fleet enema ordered. Patient needs another additional night prior to discharge to SNF. If patient has bowel movement he will most likely be discharged to SNF tomorrow. Exam Vital Signs Temp Pulse Resp BP Pulse Ox O2 Del Method O2 Flow Rate 97.7 F 52 L 16 162/78 H 95 Nasal Cannula 2 01/05/25 12:00 01/05/25 14:47 01/05/25 14:47 01/05/25 12:00 01/05/25 14:47 01/05/25 12:00 01/05/25 14:47 Narrative Exam Constitutional Alert, oriented x 3 and comfortable. Elderly male HEENT Vision grossly intact. Patent nares. Trachea midline Respiratory Chest normal on inspection and clear auscultation bilaterally Cardiovascular S1 and S2 audible, RRR. No murmurs carotid bruit. No gross JVD. Abdominal Soft and non tender to palpation in all quadrants. BS + Genitourinary No bladder tenderness, no flank pain. Normal to palpation Musculoskeletal Extremities tone within normal limits. No LE edema. Neurological CN II - XII grossly intact. Extremity motor and sensation grossly intact. Resting tremor of left arm, increased tone. Skin Warm, dry and intact. No apparent lesions. Psychiatric Patient has good affect, is cooperative Objective Labs 01/06/25 04:24 01/06/25 04:24 Labs: Laboratory Results - last 24 hr 01/05/25 05:17 WBC 5.2 RBC 3.80 L Hgb 13.5 Hct 37.7 L MCV 99 MCH 35.5 H MCHC 35.8 RDW Std Deviation 45.1 H Plt Count 130 L D Neut % (Auto) 51 Lymph % (Auto) 34 [place] % (Auto) 12 Eos % (Auto) 3 Baso % (Auto) 1 Neut # (Auto) 2.6 Lymph # (Auto) 1.7 [place] # (Auto) 0.6 Eos # (Auto) 0.2 Baso # (Auto) 0.0 Immature Gran # (Auto) 0.02 H Absolute Nucleated RBC 0.00 Immature Gran % 0 Nucleated RBC % 0 Sodium 140 Potassium 3.8 Chloride 108 H Carbon Dioxide 26.6 Anion Gap 5 L BUN 26 H Creatinine 1.4 H Estim Creat Clear Calc 44.7 L eGFR 51 L BUN/Creatinine Ratio 19 Glucose 103 Calculated Osmolality 284 Calcium 9.8 Corrected Calcium 9.8 Phosphorus 3.0 Magnesium 2.1 Total Bilirubin 1.0 AST 22 ALT 14 Alkaline Phosphatase 107 Total Protein 6.3 Albumin 4.0 Globulin 2.3 Albumin/Globulin Ratio 1.7 Quality Measures Quality Measures none Advance care planning discussed with:: other Assessment & Plan Assessment Current Active Medications: Generic Name Dose Route Start Last Admin Trade Name Freq PRN Reason Stop Dose Admin Acetaminophen 650 mg 01/02/25 20:11 01/05/25 11:39 Acetaminophen 325 Mg Tablet PO 02/01/25 20:10 650 mg Q6H PRN Administration PAIN SCALE 1-3 (mild Acetaminophen 650 mg 01/04/25 09:51 Acetaminophen Supp 650 Mg Supp NC 02/01/25 20:14 Q6H PRN Fever>101 and Pain 1-3 Protocol Allopurinol 300 mg 01/03/25 09:00 01/05/25 09:24 Allopurinol 100 Mg Tablet PO 02/02/25 08:59 300 mg QDAY JACY Administration Amlodipine Besylate 10 mg 01/03/25 09:00 01/05/25 10:00 Amlodipine Besylate 5 Mg Tablet PO 02/02/25 08:59 10 mg QDAY JACY Administration Carbidopa/Levodopa 1 tab 01/04/25 09:00 01/05/25 09:25 Carbidopa/Levodopa 25/250 Mg Tablet PO 02/03/25 08:59 1 tab BID JACY Administration Dipyridamole 200 mg 01/03/25 07:00 01/05/25 09:55 Aspirin-Dipyridam Er 25-200 Mg Home Medication- Please Speak With Patient Caregiver To Hav PO 02/02/25 06:59 Not Given QDAY JACY Donepezil HCl 10 mg 01/03/25 21:00 01/04/25 20:35 Donepezil Hcl 5 Mg Tablet PO 02/02/25 20:59 10 mg HS JACY Administration Heparin Sodium (Porcine) 5,000 unit 01/03/25 21:00 01/05/25 09:22 Heparin Sod Inj 5000 Unit/Ml Vial SC 01/17/25 20:59 5,000 unit BID JACY Administration Lidocaine 1 patch 01/04/25 20:19 01/04/25 20:29 Lidocaine 5% 1 Patch TOP 02/03/25 20:18 1 patch UD PRN Administration lower back pain Ondansetron HCl 4 mg 01/02/25 20:11 Ondansetron Inj 2 Mg/Ml Inj 2 Ml IV 02/01/25 20:10 Q6H PRN NAUSEA OR VOMITING Protocol Oxybutynin Chloride 5 mg 01/03/25 21:00 01/04/25 20:34 Oxybutynin Chlor 5 Mg Tablet PO 02/02/25 20:59 5 mg HS JACY Administration Pantoprazole Sodium 40 mg 01/03/25 09:00 01/05/25 09:22 Pantoprazole Inj 40 Mg Vial IVP 02/02/25 08:59 40 mg QDAY JACY Administration Polyethylene Glycol 17 gm 01/04/25 10:30 01/05/25 09:23 Polyethylene Glycol 17 Gm Packet PO 02/03/25 10:29 17 gm QDAY JACY Administration Tamsulosin HCl 0.8 mg 01/03/25 21:00 01/04/25 20:34 Tamsulosin Hcl 0.4 Mg Capsule PO 02/02/25 20:59 0.8 mg HS JACY Administration Plan This is an 79-year-old male with 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 Acute encephalopathy?resolved Parkinson's with dementia Patient has history of Parkinson's and currently on carbidopa/levodopa as home medication. History of recurrent falls over the past few weeks. Patient currently alert and oriented x 3 Plan: ? Pending EEG results ? Neurochecks q.4h. ? Continue home DONEPEZIL 10 mg HS ? Decreased home Sinemet dose to 1 tab p.o. twice daily from 3 times daily as per neurology recommendations. ? Avoid narcotics ? Will consider MRI brain pending EEG read as per neurology recommendations. ? Neurology, Dr. Quintana consulted. Appreciate recommendations Ground-level fall Presenting after he fell while trying to sit in chair this morning. Had another fall 2 weeks ago as he stumbled on an object. No loss of consciousness, seizures, or incontinence. Likely related to Parkinson's, as family reports frequent falls. Currently not complaining of pain. Musculoskeletal exam relatively benign. Negative Head CT, hip/pelvic x-ray, right femur x-ray. Plan: ? Pain control, avoid narcotics Elevated creatinine Creatinine elevated at 1.4. Out of range for acute kidney injury based on KDIGO guidelines. Baseline 1.2 Plan: ? Encourage p.o. fluid intake. Hyperbilirubinemia Bilirubin 2.0, no signs of abdominal pain. No jaundice, no scleral icterus. Possibly dehydrational. Plan: ? Daily CMP Hx of CVA 25 years ago, mild residual deficits. However has normal functional capacity at baseline. Plan: ? Continue home ASPIRIN-DIPYRIDAMOLE 25-200 mg BID HTN BP 135/88 Plan: ? Continue home AMLODIPINE 10 mg daily GERD Plan: ? Continue PROTONIX 40 mg IV daily BPH ? Continue TAMSULOSIN 0.8 mg daily ? Continue home equivalent OXYBUTYNIN 5 mg HS GERD No signs or symptoms of exacerbation. Plan: ? Continue home ALLOPURINOL 300 mg daily Health maintenance: Disposition: Pending 3 midnights for SNF placement. Pending EEG results and Neuro recommendations Diet: Regular Lines: pIVs GI Prophylaxis: Pantoprazole Thrombo Prophylaxis: Heparin Code status: FULL CODE This patient care was discussed with my attending Dr. Nile Chang MD PGY-2 Disclaimer: Minor errors in housing management representative may be present since this note was dictated by speech recognition software. Attending Provider Attestation/Addendum I attest that I was physically present for the evaluation, physical examination, lab and imaging review of the patient with the residents. I discussed the case with the residents and agree with the findings and plans of care as documented above. Patient continues to be alert and awake, able to answer questions and follow commands appropriately. Continues to be on Sinemet, donepezil, neurology following. Pending placement. Duc Dowd MD
[2025-01-05] MEDS: DONEPEZIL HCL 5 MG TABLET 10 MG PO (20:25)
[2025-01-05] MEDS: OXYBUTYNIN CHLOR 5 MG TABLET PO (20:26)
[2025-01-05] MEDS: TAMSULOSIN HCL 0.4 MG CAPSULE 0.8 MG PO (20:26)
--- NOTE | 2025-01-05 23:32 | ESPR_ITS ---
Documentation for date of: 01/05/25 Subjective Subjective Interval history: Patient was seen in [facility] today with his at the bedside. His mental status is back to baseline. Continues to complain of pain in the lower back and constipation Exam - Neurology Vital Signs Temp Pulse Resp BP Pulse Ox O2 Del Method O2 Flow Rate 97.6 F 58 L 18 140/81 H 95 Room Air 2 01/05/25 20:00 01/05/25 20:48 01/05/25 20:48 01/05/25 20:00 01/05/25 20:00 01/05/25 20:00 01/05/25 20:48 Narrative Exam GENERAL APPEARANCE: Well hydrated, well-nourished in no acute distress. HEENT: Normocephalic, atraumatic, extraocular movements intact. Pupils: Equal reacting to light and accommodation NECK: Supple, no JVD or bruits. CARDIOVASULAR: Heart: S1, S2 heard, regular without S3-S4 or murmur no rubs or gallops. LUNGS/CHEST: Clear to auscultation bilaterally. No rails, rhonchi, or wheezing. Normal inspection. ABDOMEN: Soft, nontender, with normal bowel sounds. No pulsatile masses. No rebound, rigidity, or guarding. Normal inspection and palpation. EXTREMITIES: Normal inspection and palpation. No edema, clubbing or cyanosis. SKIN: Warm and dry without rashes. Normal inspection. MUSCULOSKELETAL: He was able to sit up at the edge of the bed with the significant pain in the lower back. She NEURO: Alert, awake and oriented x2. Cranial nerves: II through XII grossly intact. Speech and language: Normal with no dysarthria or dysphasia. Motor system: Tone and bulk: Normal: Strength: 5 out of 5 in all 4 extremities; No pronator drift noted. Deep tendon reflexes: 2+ bilaterally symmetrical. Plantar reflex: Downgoing bilaterally. Sensory system: Intact to all modalities of sensation bilaterally. Coordination: Intact to [id number]-[id number] and hrvx-[id number]-bmkl test bilaterally. Minimal postural/intention tremors in both upper extremities but no resting tremors. Gait: Not tested. No signs of meningeal irritation noted. PSYCHIATRIC: Normal sinus mood and affect. Objective Labs 01/05/25 05:17 01/05/25 05:17 Labs: Laboratory Results - last 24 hr 01/05/25 05:17 WBC 5.2 RBC 3.80 L Hgb 13.5 Hct 37.7 L MCV 99 MCH 35.5 H MCHC 35.8 RDW Std Deviation 45.1 H Plt Count 130 L D Neut % (Auto) 51 Lymph % (Auto) 34 [place] % (Auto) 12 Eos % (Auto) 3 Baso % (Auto) 1 Neut # (Auto) 2.6 Lymph # (Auto) 1.7 [place] # (Auto) 0.6 Eos # (Auto) 0.2 Baso # (Auto) 0.0 Immature Gran # (Auto) 0.02 H Absolute Nucleated RBC 0.00 Immature Gran % 0 Nucleated RBC % 0 Sodium 140 Potassium 3.8 Chloride 108 H Carbon Dioxide 26.6 Anion Gap 5 L BUN 26 H Creatinine 1.4 H Estim Creat Clear Calc 44.7 L eGFR 51 L BUN/Creatinine Ratio 19 Glucose 103 Calculated Osmolality 284 Calcium 9.8 Corrected Calcium 9.8 Phosphorus 3.0 Magnesium 2.1 Total Bilirubin 1.0 AST 22 ALT 14 Alkaline Phosphatase 107 Total Protein 6.3 Albumin 4.0 Globulin 2.3 Albumin/Globulin Ratio 1.7 Assessment & Plan Assessment and plan (1) Altered mental status: Status: Resolved (2) Parkinson's disease: Status: Chronic Assessment and plan: continue with Sinemet bid encouraged him to try to participate with PT so that PD does not progress. (3) Old cerebrovascular accident (CVA) without late effect: Status: Chronic Assessment and plan: no residual deficit. Continue BP control and Aggrenox
[2025-01-06] VITALS (7 sets, daily range): BP systolic 141–154; BP diastolic 74–76; PULSE 50–61; RESP 16–18; TEMP 36.3–37; O2SAT 96–99
[2025-01-06] MEDS: ACETAMINOPHEN 325 MG TABLET 650 MG PO (05:15)
[2025-01-06 05:49] LABS: Basophils % (Auto) 1 % (0-2.5); Eosinophils # (Auto) 0.1 Thou/mm3 (0.0-0.5); Eosinophils % (Auto) 3 % (0-10); Hematocrit 38.6 % (41.0-53.0); Hemoglobin 13.6 g/dL (13.5-16.0); Immature Granulocytes % (Auto) 0 % (0-0); Immature Granulocytes Auto 0.02 Thou/mm3 (0.00-0.00); Lymphocytes # (Auto) 1.8 Thou/mm3 (1.0-4.8); Lymphocytes % (Auto) 36 % (10-50); Mean Corpuscular HGB Conc 35.2 g/dl (31.0-37.0); Mean Corpuscular Hemoglobin 35.1 pg (25.0-35.0); Mean Corpuscular Volume 100 fL (80-100); Monocytes # (Auto) 0.7 Thou/mm3 (0.0-0.8); Monocytes % (Auto) 14 % (0-12); Neutrophils # (Auto) 2.4 Thou/mm3 (1.8-7.7); Neutrophils % (Auto) 47 % (37-80); Nucleated Red Blood Cell % 0 /100 WBC (0); Platelet Count 137 Thou/mm3 (140-440); RDW Standard Deviation 45.2 fL (35.1-43.9); Red Blood Count 3.87 Miln/mm3 (4.50-5.90); White Blood Count 5.1 Thou/mm3 (3.8-10.6)
[2025-01-06 07:42] LABS: Alanine Aminotransferase < 7 U/L (10-49); Albumin/Globulin Ratio 1.7 (1.2-2.2); Alkaline Phosphatase 121 U/L (46-116); Anion Gap 6 (7-16); Aspartate Amino Transferase 22 U/L (0-34); BUN/Creatinine Ratio 20 Ratio (12-20); Blood Urea Nitrogen 26 mg/dL (9-23); Calcium 9.6 mg/dL (8.3-10.6); Calcium (Corrected) 9.6 mg/dL (8.5-10.1); Carbon Dioxide 28.1 mMol/L (20.0-31.0); Chloride 106 mMol/L (98-107); Creatinine (Component) 1.3 mg/dL (0.6-1.3); Estimated Creatinine Clearance 48.1 mL/min (>60); Globulin 2.3 gm/dL (2.3-3.5); Glucose 93 mg/dL (74-106); Magnesium 2.2 mg/dL (1.6-2.6); Osmolality,Calculated 284 (275-295); Phosphorous 3.3 mg/dL (2.4-5.1); Sodium 140 mMol/L (136-145); Total Protein 6.3 gm/dL (5.7-8.2); eGFR 56 See Note
[2025-01-06] MEDS: PANTOPRAZOLE INJ 40 MG VIAL IVP (08:41)
[2025-01-06] MEDS: POLYETHYLENE GLYCOL 17 GM PACKET PO (08:41)
[2025-01-06] MEDS: amLODIPine BESYLATE 5 MG TABLET 10 MG PO (08:42)
[2025-01-06] MEDS: CARBIDOPA/LEVODOPA 25/250 MG TABLET 1 TAB PO (08:42)
[2025-01-06] MEDS: allopurinoL 100 MG TABLET 300 MG PO (08:42)
[2025-01-06] MEDS: HEPARIN SOD INJ 5000 UNIT/ML VIAL SC (08:43)
--- NOTE | 2025-01-06 12:13 | VVPN_ITS ---
Telemedicine visit statement This visit was conducted with the use of phone was obtained on 01/06/25 at 1213. Documentation for date of: 01/06/25 Subjective Subjective Interval history: Patient is in MedSurg. No new symptoms reported. Continue to have low back pain and has hard time turning in bed and sitting up even with help. He did have a bowel movement this morning after being constipated for several days. Virtual exam Vital Signs Temp Pulse Resp BP Pulse Ox O2 Del Method O2 Flow Rate 97.4 F 54 L 16 141/76 H 99 Nasal Cannula 2 01/06/25 11:49 01/06/25 11:49 01/06/25 11:49 01/06/25 11:49 01/06/25 11:49 01/06/25 11:49 01/06/25 11:49 Objective Labs 01/06/25 04:24 01/06/25 04:24 Labs: Laboratory Results - last 24 hr 01/06/25 04:24 WBC 5.1 RBC 3.87 L Hgb 13.6 Hct 38.6 L MCV 100 MCH 35.1 H MCHC 35.2 RDW Std Deviation 45.2 H Plt Count 137 L Neut % (Auto) 47 Lymph % (Auto) 36 [place] % (Auto) 14 H Eos % (Auto) 3 Baso % (Auto) 1 Neut # (Auto) 2.4 Lymph # (Auto) 1.8 [place] # (Auto) 0.7 Eos # (Auto) 0.1 Baso # (Auto) 0.0 Immature Gran # (Auto) 0.02 H Absolute Nucleated RBC 0.00 Immature Gran % 0 Nucleated RBC % 0 Sodium 140 Potassium 4.0 Chloride 106 Carbon Dioxide 28.1 Anion Gap 6 L BUN 26 H Creatinine 1.3 Estim Creat Clear Calc 48.1 L eGFR 56 L BUN/Creatinine Ratio 20 Glucose 93 Calculated Osmolality 284 Calcium 9.6 Corrected Calcium 9.6 Phosphorus 3.3 Magnesium 2.2 Total Bilirubin 1.0 AST 22 ALT < 7 L Alkaline Phosphatase 121 H Total Protein 6.3 Albumin 4.0 Globulin 2.3 Albumin/Globulin Ratio 1.7 Assessment & Plan Assessment (1) Altered mental status: Could have been related to morphine Back to baseline. (2) Parkinson's disease: With mild dementia and frequent falls lately B12 over 1999 CT head: Negative for acute intracranial abnormalities Continue with Sinemet 1 tablet twice a da, Lidoderm patch for topical pain relief for lower back status post recent fall so that he can participate with the physical therapy upon discharge to [facility]. (3) Old cerebrovascular accident (CVA) without late effect: Continue with aspirin dipyridamole No recurrence reported after 25 years.
--- NOTE | 2025-01-06 13:42 | PC.NURSE ---
Report given to receiving nurse Anni EDWARDS over the phone at [facility]. Packet printed and will be send with ambulance personnel.
--- NOTE | 2025-01-06 15:27 | ESDS_ITS ---
Planned Discharge Date 01/06/25 DS: Providers Provider Date of admission: 01/03/25 08:56 Primary care physician: Cristino Henning MD Admitting Provider: Gus Dash MD Attending Provider on Admission: Duc Dowd MD Consults: 01/02/25 10:44 Referral Physical Therapy Stat Comment: Physician Instructions: Instructions: evaluation for fci 01/03/25 09:02 Consult to Neurology / Tele-Neurology Routine Comment: Generalized twitching. Parkinsons Consulting Provider: Kam Quintana 01/03/25 11:17 PT [Referral Physical Therapy] Routine Comment: Physician Instructions: Instructions: For SNF placement please Attending Provider on DC: Kenji Chang MD Discharging Provider: Kenji Chang MD DS: Diagnosis Problem List Completed Was Problem List Reviewed/Reconciled?: Yes Hospital Course Hospital Course Hospital course: Mr. Kelly an 79-year-old male patient with significant medical history for CVA, Parkinson's with dementia, GERD, BPH, hypertension and gout who was admitted at [facility] on 01/02/2025 for ground-level fall (without loss of consciousness) and altered mental status. Head CT was negative for any acute hemorrhage, hip pelvis x-ray indicated no acute fractures. While in the hospital patient was seen by neurologist Dr Quintana. Patient's medications were adjusted, cognition improved, patient had bowel movement and he was stable to be discharged to SNF on his home medications and decreased doses of Sinemet (carbidopa-levodopa) to twice daily. Discharge summary was reviewed with my attending Dr. Nile Chang, PGY-2 Status at Discharge Overall status at discharge: patient is progressing back to baseline Time Spent with Patient Time attestation: Total time spent providing and/or coordinating discharge services: Time spent: Greater than 30 minutes Exam Vital Signs Temp Pulse Resp BP Pulse Ox O2 Del Method O2 Flow Rate 97.4 F 56 L 16 141/76 H 99 Nasal Cannula 2 01/06/25 11:49 01/06/25 12:00 01/06/25 11:49 01/06/25 11:49 01/06/25 11:49 01/06/25 11:49 01/06/25 11:49 Narrative Exam Constitutional Alert, oriented x 3 and comfortable. Elderly male HEENT Vision grossly intact. Patent nares. Trachea midline Respiratory Chest normal on inspection and clear auscultation bilaterally Cardiovascular S1 and S2 audible, RRR. No murmurs carotid bruit. No gross JVD. Abdominal Soft and non tender to palpation in all quadrants. BS + Genitourinary No bladder tenderness, no flank pain. Normal to palpation Musculoskeletal Extremities tone within normal limits. No LE edema. Neurological CN II - XII grossly intact. Extremity motor and sensation grossly intact. Resting tremor of left arm, increased tone. Skin Warm, dry and intact. No apparent lesions. Psychiatric Patient has good affect, is cooperative Discharge Plan Plan Patient Disposition: Xfer Skilled Nsg Fac (SNF) Prescriptions/Referrals Prescriptions/Med Rec: New carbidopa-levodopa 25-250 mg Tablet 1 tab PO BID 30 Days Qty: 60 2RF Continued tamsulosin 0.4 mg Capsule,Extended Release 24hr 0.8 mg PO .qhs amlodipine 10 mg Tablet 10 mg PO QDAY allopurinol 300 mg Tablet 300 mg PO BID aspirin-dipyridamole 25-200 mg capsule, ER multiphase 12 hr 1 cap PO BID Patient Comments: TAKE 1 CAPSULE BY MOUTH TWICE A DAY famotidine 20 mg tablet 20 mg PO .qhs Patient Comments: TAKE 1 TABLET BY MOUTH EVERYDAY AT BEDTIME donepezil 10 mg tablet 10 mg PO .qhs Patient Comments: TAKE 1 TABLET BY MOUTH EVERYDAY AT BEDTIME omeprazole 20 mg capsule,delayed release(DR/EC) 20 mg PO QDAY Patient Comments: TAKE 1 CAPSULE BY MOUTH EVERY DAY FOR 30 DAYS solifenacin 5 mg tablet 5 mg PO .qhs Patient Comments: TAKE 1 TABLET BY MOUTH EVERY DAY Discontinued carbidopa-levodopa 25-250 mg tablet 1 tab PO TID Patient Comments: TAKE 1 TABLET BY MOUTH THREE TIMES A DAY Referrals: Cristino Henning MD [Primary Care Provider] - Patient/Caregiver Discharge Instructions Other Discharge Activity Instructions:: Stop taking Sinemet (carbidopa-levodopa) three times per day Start taking your Sinemet (carbidopa-levodopa) TWICE per day Continue rest of your home medications as indicated See your PCP and neurologist within x1 week of discharge If symptoms worsen, please go to your nearest hospital Education Materials: Parkinson Disease Common Sx, Parkinson Disease Caregiver, Exercises to Prevent Falls, ED Confusion, ED Fall Dizziness Weakn Balance Print Language: Citizen Of [place] Stand Alone Forms: [employer] Award Info., Patient Portal Info Letter Discharge Order Discharge Orders: Discharge (Routine); Ordered 01/05/25 Ordered By: Kenji Chang Quality Discharge Quality Measures VTE prophylaxis MD Attestestation MD Attestation I attest that I was physically present for the evaluation, physical examination, lab and imaging review of the patient with the residents. I discussed the case with the residents and agree with the findings and plans of care as documented above. At bedside today, patient appears to be alert and oriented, comfortable, able to answer questions and follow commands. Has been participating in physical therapy. We will discharge patient to SNF for continuation of physical therapy. Recommended to follow-up with PCP and neurology in 1 to 2 weeks of discharge. Duc Dowd MD
--- NOTE | 2025-01-06 16:08 | PC.SS ---
SS spoke with medical team on transportation schedule SS spoke with Eva Thomas, transportation set for 1500 SS spoke with [facility], set up transportation SS spoke with Gloria, spouse, went over medicare rights; ambulance transportation needed; understand pt will need to pay for ambulance, SS met with pt at bedside discuss medicare; pt asked to speak with spouse
[2025-01-09 07:07] LABS: Vitamin D,1,25 (OH)2,Total 38 pg/mL (18-72); Vitamin D2, 1,25 (OH)2 <8 pg/mL; Vitamin D3, 1,25 (OH)2 38 pg/mL
== END 2025-01-06 15:17 | disposition skilled nursing facility (03) | DRG 71 ==
LOC: SERX 10:16 → S3SX 01-03 07:10 → SERHOLD 01-04 06:11
PROVIDERS: Admitting Provider Internal Medicine; Emergency Provider Emergency Medicine; PCP Family Medicine; Visit Provider Student in an Organized Health Care Education/Training Program
DX: G93.40 Encephalopathy, unspecified (principal); N17.9 Acute kidney failure, unspecified; R17 Unspecified jaundice; M10.9 Gout, unspecified; F02.80 Dementia in other diseases classified elsewhere, unspecified severity, without behavioral disturbance, psychotic disturbance, mood disturbance, and anxiety; G20.A1 Parkinson's disease without dyskinesia, without mention of fluctuations; I10 Essential (primary) hypertension; N40.0 Benign prostatic hyperplasia without lower urinary tract symptoms; K21.9 Gastro-esophageal reflux disease without esophagitis; Z86.73 Personal history of transient ischemic attack (TIA), and cerebral infarction without residual deficits; R29.6 Repeated falls; Z91.81 History of falling; Z79.899 Other long term (current) drug therapy; Z79.82 Long term (current) use of aspirin; W01.0XXA Fall on same level from slipping, tripping and stumbling without subsequent striking against object, initial encounter
CPT/HCPCS: 36415; 70450; 71045; 73502; 80053; 81001; 82607; 82652; 83605; 83735; 83880; 84100; 84484; 85025; 85610; 85730; 87040; 87086; 87811; 93005; 93225; 95816; 99285; G0378; J1643; J2470; J7030; Z7610; A9270

== ENCOUNTER → 2025-04-27 | Outpatient (CLI) | payer MEDICARE, BC, SELFPAY ==
--- NOTE | 2025-04-27 | XR_ITS ---
Examination: Lumbar spine, 5 views Technique: Lumbar spine AP, lateral, coned lateral lower lumbar spine, bilateral obliques 5 views Exam date and time: April 27, 2025 1213 hours INDICATIONS: Low back pain beginning 5 days ago. FINDINGS: Severe osteopenia Interval fracture L4 vertebral body compared to the 2018 exam, indistinct superior endplate Reduction in height 80% Grade 1 spondylolisthesis L5 on S1 with advanced degenerative disc disease L5-S1 IMPRESSION: Suspicious for pathologic subacute fracture L4 vertebral body Recommend MRI lumbar spine follow-up, pre and post intravenous contrast
[2025-04-27 16:43] LABS: Albumin, Serum 4.4 gm/dL (3.4-4.8); Anion Gap 11 (7-16); BUN/Creatinine Ratio 16 Ratio (12-20); Blood Urea Nitrogen 22 mg/dL (9-23); Calcium 9.3 mg/dL (8.3-10.6); Calcium (Corrected) 9.3 mg/dL (8.5-10.1); Carbon Dioxide 25.9 mMol/L (20.0-31.0); Chloride 103 mMol/L (98-107); Creatinine (Component) 1.4 mg/dL (0.6-1.3); Glucose 124 mg/dL (74-106); Osmolality,Calculated 283 (275-295); Phosphorous 3.4 mg/dL (2.4-5.1); Potassium 4.4 mMol/L (3.4-5.1); Sodium 140 mMol/L (136-145); eGFR 50 See Note
== END | disposition home or self-care (01) ==
LOC: CDIM 11:47 → COPL 15:18
PROVIDERS: PCP Family Medicine; Referring Provider Family Medicine; Visit Provider Family Medicine
DX: M54.50 Low back pain, unspecified (principal); N18.1 Chronic kidney disease, stage 1; I12.9 Hypertensive chronic kidney disease with stage 1 through stage 4 chronic kidney disease, or unspecified chronic kidney disease
CPT/HCPCS: 36415; 72110; 80069

== ENCOUNTER → 2025-04-28 | Outpatient (CLI) | payer MEDICARE, BC, SELFPAY ==
--- NOTE | 2025-04-28 15:45 | XR_ITS ---
Examination: MRI lumbar spine without contrast Date and time of exam: April 28, 2025 1523 hours INDICATIONS: Low back pain 3 weeks after fall with injury to lower back Technique: Multiple MRI axial and sagittal sections lumbar spine. Sagittal T2-weighted images, TR 3500, TE 118 T1 weighted transverse sections, TR 688 T8.5, T2-weighted sagittal sections T1 weighted sagittal sections TR 621, TE 30 T2 axial sections, TR 4, 190, TE 84. Findings: The L4 vertebral body is replaced by isointense signal with moderately severe compression fracture Retropulsion of the posterior superior margin of this vertebral body 6 mm Grade 2 spondylolisthesis L5 on S1 produces severe bilateral L5 ganglionic compression Adequate marrow signal remaining lumbar vertebral bodies IMPRESSION: L4 compression fracture, moderate which may be pathologic, recommend CT scan lumbar spine without contrast while rock to best assess acuity of this fracture Grade 2 spondylolisthesis L5 on S1 produces severe bilateral L5 ganglionic compression
== END | disposition home or self-care (01) ==
LOC: SMRI 14:56
PROVIDERS: Referring Provider Family Medicine; Visit Provider Family Medicine
DX: S32.048A Other fracture of fourth lumbar vertebra, initial encounter for closed fracture (principal); X58.XXXA Exposure to other specified factors, initial encounter; M43.17 Spondylolisthesis, lumbosacral region; G95.20 Unspecified cord compression
CPT/HCPCS: 72148

== ENCOUNTER → 2025-10-25 | Outpatient (CLI) | payer MEDICARE, BC, SELFPAY ==
[2025-10-25 12:29] LABS: Basophils # (Auto) 0.0 Thou/mm3 (0.0-0.2); Basophils % (Auto) 1 % (0-2.5); Eosinophils # (Auto) 0.1 Thou/mm3 (0.0-0.5); Eosinophils % (Auto) 2 % (0-10); Hematocrit 40.5 % (41.0-53.0); Hemoglobin 14.1 g/dL (13.5-16.0); Immature Granulocytes Auto 0.02 Thou/mm3 (0.00-0.00); Lymphocytes # (Auto) 1.7 Thou/mm3 (1.0-4.8); Lymphocytes % (Auto) 31 % (10-50); Mean Corpuscular HGB Conc 34.8 g/dl (31.0-37.0); Mean Corpuscular Hemoglobin 36.2 pg (25.0-35.0); Mean Corpuscular Volume 104 fL (80-100); Monocytes # (Auto) 0.6 Thou/mm3 (0.0-0.8); Monocytes % (Auto) 11 % (0-12); Neutrophils # (Auto) 3.1 Thou/mm3 (1.8-7.7); Neutrophils % (Auto) 56 % (37-80); Nucleated Red Blood Cell # 0.00 Thou/mm3 (0.00-0.00); Nucleated Red Blood Cell % 0 /100 WBC (0); Platelet Count 115 Thou/mm3 (140-440); RDW Standard Deviation 51.0 fL (35.1-43.9); Red Blood Count 3.89 Miln/mm3 (4.50-5.90); White Blood Count 5.5 Thou/mm3 (3.8-10.6)
[2025-10-25 12:36] LABS: Prostate Specific Antigen 1.52 ng/mL (0-4.00)
[2025-10-25 12:54] LABS: Alanine Aminotransferase 7 U/L (10-49); Albumin, Serum 4.6 gm/dL (3.4-4.8); Albumin/Globulin Ratio 2.0 (1.2-2.2); Alkaline Phosphatase 65 U/L (46-116); Anion Gap 8 (7-16); Aspartate Amino Transferase 22 U/L (0-34); BUN/Creatinine Ratio 15 Ratio (12-20); Bilirubin,Total 1.1 mg/dL (0.3-1.2); Blood Urea Nitrogen 21 mg/dL (9-23); Calcium 9.6 mg/dL (8.3-10.6); Calcium (Corrected) 9.6 mg/dL (8.5-10.1); Carbon Dioxide 28.8 mMol/L (20.0-31.0); Cardiac Risk Estimate 3.3 RATIO (4.0-6.7); Chloride 105 mMol/L (98-107); Cholesterol 127 mg/dL (132-200); Creatinine (Component) 1.4 mg/dL (0.6-1.3); Globulin 2.3 gm/dL (2.3-3.5); Glucose 95 mg/dL (74-106); HDL Cholesterol 38 mg/dL (40-60); LDL Cholesterol,Calculated 66 mg/dL (0-130); Osmolality,Calculated 286 (275-295); Potassium 4.6 mMol/L (3.4-5.1); Sodium 142 mMol/L (136-145); Total Protein 6.9 gm/dL (5.7-8.2); Triglycerides 113 mg/dL (30-150); eGFR 50 See Note
== END | disposition home or self-care (01) ==
LOC: COPL 10:49
PROVIDERS: PCP Family Medicine; Referring Provider Family Medicine; Visit Provider Family Medicine
DX: M54.50 Low back pain, unspecified (principal); S32.040A Wedge compression fracture of fourth lumbar vertebra, initial encounter for closed fracture; F02.A11 Dementia in other diseases classified elsewhere, mild, with agitation; G20.B1 Parkinson's disease with dyskinesia, without mention of fluctuations; R79.9 Abnormal finding of blood chemistry, unspecified
CPT/HCPCS: 36415; 80053; 80061; 84153; 85025